=== PATIENT | female | born 1965 | race Hispanic/Latino ===

== ENCOUNTER 2017-01-08 16:24 | Inpatient (IN) | payer OTHER ==
[~2017-01-08] VITALS: Ht 167.6 cm; Wt 184.4 kg
[~2017-01-08 16:24] MED LIST: ASPI325T32 PO; BENZ-12 PO; CLIN-78 PO; CYCL10TA9 PO; D ME PO; FLUO60TA PO; HYDR-4003 PO; HYDR473S48 PO; IBUP800T28 PO; LORA-305 PO; LOSA100T29 PO; METF500T4 PO
[2017-01-08 16:32] VITALS: BP 150/99; PULSE 108; RESP 22; O2SAT 97
[2017-01-08] MEDS ORDERED: Ondansetron 2 mg/mL 2 mL Inj ONE (18:04)
[2017-01-08 18:16] LABS: BASOPHILS % (AUTO) 0.2 % (0-3); MONOCYTES % (AUTO) 5.5 % (4-12); Mean Corpuscular Hemoglobin 26.4 pg (27.0-35.0); Mean Corpuscular Volume 84.8 fL (81-100); NEUTROPHILS % (AUTO) 85.7 % (40-74); Platelet Count 309 bil/L (150-400)
--- NOTE | 2017-01-08 18:22 | ED.REPORT ---
HPI-Abd Pain F 40 and Over Date of Service Jan 08, 2017 ED Provider: Emigdio Mason MD A 51 year old female with a history of asthma presents to the ED complaining of abdominal pain onset last night. Pain is concentrated in the middle abdomen and radiates to her right side. At 0600, the patient was woken up by pain and had diarrhea, with subsequent difficulty getting back to sleep. Diarrhea is described as "pure water." Associated symptoms include nausea, weakness, lightheadedness, dizziness and that"food goes right through her" due to diarrhea. The patient's mother was recently hospitalized for TIA and experienced severe diarrhea while in the hospital which has since resolved after her discharge. The patient visited her mother earlier today where the patient felt like she was going to faint from the pain and weakness. The patient took two of her mom's loperamide today to treat the diarrhea. She also had chamomile tea and mineral water. The patient denies taking any antibiotics in the last 3 months and has not recently traveled out of the country. She reports a history of and abdominal surgery to treat gall stones in 1981, however she does not think that she had a cholecystectomy. She denies any fever and describes that she is usually cold. Nursing Notes Stated Complaint: ABDOMINAL PAIN, NAUSEA,DIARRHEA, DIZZINESS Chief Complaint: Female Abdominal Pain Nursing Notes Reviewed: Yes ([employer] not reconciled) Allergies: Coded Allergies: Penicillins (Verified Allergy, Severe, HOT, SEVERE RASH,ANXIETY, 07/29/16) cephalexin (Verified Allergy, Intermediate, rash, 07/29/16) Scheduled Aspirin (Aspirin) 325 Mg Tablet 325 MG PO DAILY Clindamycin (Clindamycin) 300 Mg Capsule 300 MG PO QID Cyclobenzaprine (Cyclobenzaprine) 10 Mg Tablet 10 MG PO TID Fluoxetine (Fluoxetine) 60 Mg Tablet 60 MG PO DAILY Losartan Potassium (Losartan Potassium) 100 Mg Tablet 100 MG PO DAILY Metformin (Metformin) 500 Mg Tablet 500 MG PO BID Scheduled PRN Benzonatate (Tessalon Perle) 100 Mg Capsule 100 MG PO TID PRN PRN For Cough D-Methorphan/PE/Acetaminophen (Sudafed PE Pressure+Pain+Cough) 1 Each Tablet 1 EACH PO DAILY PRN PRN For Congestion Hydrocodone-Acetaminophen 5-325 mg (Hydrocodone-Acetaminophen 5-325 mg) 1 Each Tablet 1-2 TABLET PO QID PRN PRN For Pain Hydrocodone/Acetaminophen (Lortab 10 mg-300 mg/15 ml Elxr) 473 Ml Solution 5-15 ML PO Q4 PRN PRN For Pain Ibuprofen (Ibuprofen) 800 Mg Tablet 800 MG PO TID PRN PRN For Pain Lorazepam (Ativan) 2 Mg Tablet 2 MG PO prn PRN PRN For Insomnia General Time Seen by MD: 18:20 Chief Complaint Abdominal pain Hx Obtained From: Patient Arrived By: Walk-in Sudden in Onset?: No Onset Occurred: Yesterday (Last night) Symptom Duration: Since onset Recent Healthcare: No recent doctor visit Similar Sx Previous: No Past Medical History Past Medical History LLE cellulitis requiring admission Nov 13, 2015 bronchitis asthma Reports: Asthma Reports: Morbid Obesity Past Surgical History Right elbow ortho BCTR Patient has a midline scar - ?Xlap for unclear cause - not sure if gallbladder may have been removed ("I had stones") Smoking History Former Smoker Social History Other Social History: Good social support, Local resident Ambulatory Status Independent Review of Systems Lightheadedness. Constitutional: Denies: Fever GI: Reports: Abdominal pain, Diarrhea, Nausea Complete sys rev & neg: except as marked. Neurologic: Reports: Dizziness, Weakness Physical Exam Vital Signs Vital Signs (First) Date Time Temp Pulse Resp B/P Pulse Ox O2 Delivery O2 Flow Rate FiO2 01/08/17 16:32 37.2 108 22 150/99 97 Room Air Initial VS: Reviewed, Vital signs abnormal (mild tachycardia) General/Constitutional: Awake, Alert Appearance / Presentation: Positive: Obese uncomftorable. Respiratory / Chest: Atraumatic, Breath sounds NL, Breath sounds = bilat, No rales, No rhonchi, No wheezing Cardiovascular: No murmurs, No rubs Heart Rate / Rhythm: Positive: Tachycardia (Mild) Abdomen: Atraumatic, Soft, Non-tender, No guarding, No rebound Patient has midline incisional scar from unknown procudure. Back: Atraumatic, Full range of motion Head / Eyes: Atraumatic, Normocephalic, PERRL, EOMI ENT: Atraumatic, Mucous membranes moist Skin: Atraumatic, Color NL, Warm, Dry Neurologic: Oriented X3, Speech NL Neck: Atraumatic, Full range of motion Wrist / Hand: Atraumatic, Full range of motion Lower Extremity / Pelvis / MS: Atraumatic, Full range of motion Interpretation & Diagnostics Lab Results Interpretation Result Diagram: 01/08/17 1800 01/08/17 1800 Test 01/08/17 18:00 White Blood Count 14.5th/mm3 (3.8-10.1) Red Blood Count 4.81mil/mm3 (3.90-5.20) Hemoglobin 12.7g/dL (12.0-15.6) Hematocrit 40.8% (35.0-46.0) Mean Corpuscular Volume 84.8fL (81-100) Mean Corpuscular Hemoglobin 26.4pg (27.0-35.0) Mean Corpuscular Hemoglobin Concent 31.1% (32.0-37.0) Red Cell Distribution Width 14.9% (12.3-15.4) Platelet Count 309bil/L (150-400) Neutrophils (%) (Auto) 85.7% (40-74) Lymphocytes (%) (Auto) 5.3% (14-46) Monocytes (%) (Auto) 5.5% (4-12) Eosinophils (%) (Auto) 3.0% (0-5) Basophils (%) (Auto) 0.2% (0-3) Sodium Level 134mEq/L (134-144) Potassium Level 4.3mEq/L (3.5-5.2) Chloride Level 94mEq/L (97-108) Carbon Dioxide Level 23mmol/L (18-29) Blood Urea Nitrogen 13mg/dL (6-24) Creatinine 0.67mg/dL (0.57-1.00) Estimat Glomerular Filtration Rate 132mL/min (>59) Glucose Level 158mg/dL (60-99) Calcium Level 9.2mg/dL (8.5-10.1) Magnesium Level 1.6mg/dL (1.6-2.6) Total Bilirubin 0.3mg/dL (0.0-1.2) Aspartate Amino Transf (AST/SGOT) 22U/L (0-50) Alanine Aminotransferase (ALT/SGPT) 21U/L (0-32) Alkaline Phosphatase 81U/L (25-150) Total Protein 8.4g/dL (6.4-8.4) Albumin 4.2g/dL (3.4-5.0) Lipase 19U/L (13-60) Lab Results Interpretation: CBC mild leukocytosis CMP normal Lipase normal Stools PCR panel pending Re-Eval/Medical Decision Med Decision/Clinical Course This is a 51-year-old female presents with some mild complaints of abdominal discomfort, followed by the onset of terrible, persistent, severe, and ongoing diarrhea. She reports she has had countless bouts episodes of loose watery stools, and it continued in the department more than 12-14 episodes occurring. The patient feels weak, and dizzy. She appears clinically mildly dehydrated- appearing but has normal vitals. She has no overt C. difficile risk factors-no travel history, no recent definite ill exposure, no recent antibiotic use. She received fluids, continued to have episodes of stools-stool PCR is panel has been sent given the severity of her ongoing, uncontrolled diarrhea. Blood work is notable for leukocytosis but otherwise normal. She is obese. Abdomen is soft, without clinical tenderness or findings of a surgical abdomen, or findings to indicate that CT scan would be warranted. However despite hydration attempts, the patient continues to have ongoing severe diarrhea, continues to feel weak and lousy, lives at home. Therefore the plan at this time is observation admission for continued supportive therapies. Source of Hx: Old records Re-Evaluation/Progress : Time of Eval: 21:15 Re-Evaluation/Progress Note: Rechecked patient who reports having 12 episoides of uncontrolled diarrhea since last recheck. Explained plan for admission. Patient understands and agrees with the plan. All questions addressed. Consultation : Referral / Consult Name: Keya Jean DO Consulted With: Hospitalist Call Returned at: 21:29 Film Composer: Agrees with eval, Agrees with plan, Accepts admit Note: Discussed patient case with Dr. Jean who accepts patient admit. Differential Diagnosis: Positive: Diarrhea, Negative: Abdominal aortic aneurysm, Acute coronary syndrome, Constipation, Ectopic , Esophageal rupture, Gun shot wound abdomen, Intrauterine , Peritonitis, Stab wound abdomen, Unstable angina Counseled Regarding: Diagnosis, Lab results, Need for admission Discharge & Departure Primary Impression: Diarrhea Additional Impression: Dehydration Disposition: ADMITTED TO HOSPITAL Discharge Condition All VS Reviewed: Yes Condition: Improved Referrals: Luz Hayes MD (PCP) Scribe Attestation Portions of this note were transcribed by Tan Tidwell. I, Dr. Mason, personally performed the history, physical exam and medical decision-making; I reviewed and confirmed the accuracy of the information in the transcribed note. Signed by Tan Guerra, 01/08/17. copies to: Luz Hayes MD, Matthew F MD Jan 08, 2017 18:22 Tan Tidwell Jan 08, 2017 18:27
[2017-01-08 18:41] LABS: Magnesium 1.6 mg/dL (1.6-2.6)
[2017-01-08] MEDS ORDERED: Ondansetron 2 mg/mL 2 mL Inj IVPUSH ONE (18:45)
[2017-01-08] MEDS ORDERED: 0.9% Sodium Chloride 1,000 ML IV ONE ×3 (18:45→21:15)
[2017-01-08 20:52] VITALS: BP 124/75; PULSE 97; RESP 16; O2SAT 97
[2017-01-08] MEDS ORDERED: Polyethylene Glycol (PEG) 17 Gm Powder PO PRN (21:30)
[2017-01-08] MEDS ORDERED: Alum-Mag Hydrox-Simeth 30 mL Suspension PO PRN (21:30)
[2017-01-08] MEDS ORDERED: HYDROcodone-APAP 5-325 mg Tablet PO ONE (21:50)
[2017-01-08] MEDS ORDERED: OMEP20TA86 PO (22:32)
[2017-01-08] MEDS ORDERED: BECL8.7A5 INHALATION (22:32)
[2017-01-08] MEDS ORDERED: FLUT9.9S NASAL (22:32)
[2017-01-08] MEDS ORDERED: BUSP15TA3 PO (22:32)
[2017-01-08] MEDS ORDERED: METF850T2 PO (22:32)
[2017-01-08] MEDS ORDERED: ALBU8.5H2 INHALATION (22:32)
[2017-01-08 23:04] VITALS: BP 124/75; PULSE 97; RESP 16; O2SAT 97
[2017-01-08] MEDS ORDERED: LORazepam 2 mg Tablet PO PRN (23:10)
[2017-01-08] MEDS ORDERED: Albuterol 2.5 mg/3 mL Inhalation Solution NEB PRN (23:10)
[2017-01-08] MEDS ORDERED: Glucose 40% Oral Gel 15 Gm Tube PO PRN (23:15)
--- NOTE | 2017-01-08 23:22 | PCM.HPMED ---
Subjective Date of Service Jan 08, 2017 Primary Provider: Admitting Physician: Keya Jean DO Primary Care Physician: Luz Hayes MD Attending Physician: Keya Jean DO Chief Complaint: Diarrhea, generalized weakness History of Present Illness: Patient is a 51 year old female with a history of DM type 2, HTN, and depression. She presented to [facility] on 01/08/17 with persistent diarrhea and generalized weakness. The diarrhea began earlier in the day. She reports numerous episodes, probably greater than 20. She describes the stool as feeling like liquid/water and it is yellow/orange in color. She denies any bloody stools and has not seen any solid brown stool. She has been quite nauseated with no vomiting and she does have abdominal pain in the area of the umbilicus. Bloating and belching have also been noted. She has a poor appetite as a consequence of her symptoms. She denies fever but has been chilled with mild rigors. No difficulties with urination such as dysuria and no hematuria noted. The patient decided to come to the hospital when she felt as though she was about to pass out. Her generalized weakness had progressed to the point that she thought she was becoming dehydrated. Her diarrhea was also becoming more difficult to control and she was not making it to the bathroom in time to use the toilet. Her last meal was breakfast on 01/08/17. She had toast and half a banana. Yesterday she recalls eating fish sticks and corn for dinner. Other family members also ate this meal and did not become ill. The patient denies any recent travel or camping. She has not knowingly consumed water from a well, stream or downs. She has not been on antibiotics in the last month or so. The only new thing to her daily routine is the use of an [employer] powder called "Greens." The powder is dissolved in water and can be used as a nutritional supplement for vegetables. The patient is in phase two of the process of gastric bypass surgery. In the ED the patient was afebrile with a heart rate of 108, respiratory rate 22 , blood pressure 150/99 and O2 saturation 97% on room air. Labs were remarkable for WBC 14.5, and blood glucose 158. Stool PCR was ordered by Dr. Mason. IV fluids initiated. Case discussed with Dr. Mason. Patient to be admitted inpatient to [facility] [place] [place] for further IV hydration. Review of Systems: A comprehensive review of systems was conducted with the patient and found to be negative except as above in the history of present illness. Allergies Coded Allergies: Penicillins (Verified Allergy, Severe, HOT, SEVERE RASH,ANXIETY, 07/29/16) cephalexin (Verified Allergy, Intermediate, rash, 07/29/16) Home Medications Per patient: Ativan 2 mg HS PRN insomnia Albuterol HFA 2 puffs Q4 PRN SOB Aspirin 325 mg daily QVAR 2 puffs BID PRN SOB Buspirone 15 mg BID Cyclobenzaprine 10 mg TID PRN muscle spasm Fluoxetine 60 mg daily Flonase 1 spray each nostril PRN Hydrocodone-acetaminophen 5/325 mg 1-2 tables QID PRN pain Ibuprofen 800 mg TID pain Losartan 100 mg daily Metformin 850 mg BID Omeprazole 20 mg daily PMH Diabetes mellitus type 2 Hypertension Depression Morbid obesity in phase 2 of gastric bypass Surgical History Right elbow ortho BCTR Family History Family history of DM and HTN Social History Hx Alcohol Use: No Hx Substance Use: No Hx Tobacco Use: No Exam Vital Signs Vital Sign - Last Date Time Temp Pulse Resp B/P Pulse Ox O2 Delivery O2 Flow Rate FiO2 01/08/17 20:52 37.7 97 16 124/75 97 Room Air Exam Alert and oriented x3, in obvious discomfort; morbidly obese Head atraumatic, normocephalic PERRLA, EOMI, sclera anicteric Mucus membranes dry, no oral thrush observed No cervical lymphadenopathy, neck supple, nontender Cardiac tones regular rate and rhythm with no murmur appreciated Lungs clear to auscultation bilaterally with adequate respiratory effort ( anteriorly) Abdominal tenderness around the umbilicus, obese, hyperactive bowel tones, soft , no guarding or rebound tenderness Noguera absent Radial pulses normal and equivalent bilaterally, dorsalis pedis pulses normal and equivalent bilaterally No cyanosis, clubbing or edema No ulcerations/open wounds Cranial nerves appear to be fully intact, normal speech, patient can move upper and lower limbs grossly Lab and Diagnostics Result Diagram: 01/08/17 1800 01/08/17 1800 Assessment & Plan Patient is a 51 year old female with a history of DM type 2, HTN, and depression. She presented to [facility] on 01/08/17 with persistent diarrhea and generalized weakness. IV fluids initiated in ED. Patient admitted for supportive symptom management. 1. Acute diarrhea, present on admission. - Based on patient history presume viral etiology of gastroenteritis. Have not definitely ruled out bacterial causes but seem less likely. No recent ABX use to raise suspicion for C. diff. - Will not plan to start antibiotics at this time. If WBC increases tomorrow AM , patient decompensates overnight, or PCR positive consider starting antibiotics. - Stool PCR ordered and pending. - Await stool PCR before using loperamide or similar medication. - Continue IV NS 100 ml/hr. - Clear liquid diet as tolerated. Will plan to advance diet as tolerated. - Closely monitor I&O's. - Contact precautions. - Recheck CBC and CMP tomorrow AM. - Remote telemetry at this time. - Low threshold to do CT scan of abdomen if abdominal pain worsens. 2. Diabetes mellitus type 2, non-insulin dependent. - Unknown A1c - ordered and pending. - Patient takes metformin 850 mg BID at home. Will hold tonight - defer to day team to re-start. - Low dose correction scale ordered and pending. 3. Hypertension, chronic, presume stable. - Continue home meds - losartan 100 mg daily. 4. Depression, chronic, presume stable. - Continue home meds: buspirone 15 mg BID and fluoxetine 60 mg daily. 5. Asthma, chronic, presume stable. - Continue albuterol nebs PRN. 6. Morbid obesity. - BMI 67.8 - Patient undergoing outpatient treatment and is in phase 2 of the process for gastric bypass. - Antiemetic available PRN. - Antacid available PRN. - [place] 5/325 mg available Q6 PRN. Patient admitted under inpatient status with expected length of stay greater than 2 midnights for severity of present symptoms, complexities of treatment plan and risk for adverse events. PCP Luz Hayes MD GI Prophylaxis: Proton Pump Inhibitor VTE Prophylaxis: Sub-Q Enoxaparin Resuscitation Status: CPR: Attempt Resuscitation Attending Statement The patient was seen and examined together with house staff on 01/09/2017 and I agree with the history, exam and plan as outlined in the note above. copies to: Luz Hayes MD, Jennifer E DO Jan 08, 2017 22:46 Keya Jean DO Jan 09, 2017 04:18
[2017-01-08] MEDS: 0.9% Sodium Chloride 1,000 ML IV SCH (23:49)
--- NOTE | 2017-01-08 23:50 | NUR ---
admit Pt arrived to room from ED with all belongings and daughter. Pt walked from stretcher to bed, pt needing assist to bed and to get feet into bed. Pt was alert and oriented, complained of abdominal pain and waiting for previously given pain med to work. Walked with assist to bathroom and returned to bed. Left room with call light in pt hand.
[2017-01-08 23:56] VITALS: BP 143/83; PULSE 90; RESP 18; O2SAT 93
[2017-01-09] VITALS (7 sets, daily range): BP systolic 100–146; BP diastolic 68–92; PULSE 79–94; RESP 18; O2SAT 93–97
[2017-01-09] MEDS: HYDROcodone-APAP 5-325 mg Tablet PO PRN ×3 (04:35→20:10)
--- NOTE | 2017-01-09 04:47 | NUR ---
pain Pt given percoset for abdominal pain. Continues on enteric precautions till labs return in the AM. Left room with call light at bedside.
[2017-01-09] MEDS: Pantoprazole 40 mg ER24 Tablet PO SCH (06:02)
[2017-01-09 06:11] LABS: BASOPHILS % (AUTO) 0.2 % (0-3); MONOCYTES % (AUTO) 10.7 % (4-12); Mean Corpuscular Hemoglobin 26.3 pg (27.0-35.0); NEUTROPHILS % (AUTO) 71.8 % (40-74); Platelet Count 247 bil/L (150-400)
[2017-01-09 06:37] LABS: Magnesium 1.8 mg/dL (1.6-2.6); Phosphorus 2.5 mg/dL (2.5-4.9)
[2017-01-09] MEDS: Insulin LISPRO 300 Unit/3 mL Inj SUBQ SCH ×4 (08:00→20:03)
[2017-01-09] MEDS: BusPIRone 15 mg Dividose Tablet PO SCH ×2 (08:28→19:51)
[2017-01-09] MEDS: 0.9% Sodium Chloride 1,000 ML IV SCH ×2 (09:36→19:55)
[2017-01-09] MEDS: Ondansetron 2 mg/mL 2 mL Inj IVPUSH PRN (14:35)
--- NOTE | 2017-01-09 16:34 | NUR ---
Social Work: Screening Data: Pt is a 51 y/o female admitted for diarrhea, dehydration. Pt's PCP is Dr Hayes, pt's insurance is [employer]. EMR reviewed, pt discussed in rounds. No d/c planning needs identified at this time. [employer] will continue to follow if needs arise. Assessment: Pt who is independent at baseline. Plan: Pt will d/c home via POV when medically stable. No d/c planning needs identified at this time. [employer] will continue to follow if needs arise. DEBORA Pillai
--- NOTE | 2017-01-09 16:34 | NUR ---
Diarrhea/Pain Pt continues to report watery, frequent stools. Pt continued on IVF at 100mL/Hr and able to tolerate some clear liquids. Pt did report some nausea this afternoon and Pt given PRN IV zofran. Pt reporting 8/10 abd pain this am, only PRN available at the time was cyclobenzaprine which Pt received without effect on pain. Pt given PRN norco when timing in eMAR allowed, Pt reported as somewhat effective for pain, spoke with MD and ketorolac IV PRN added to eMAR, attempted ketorolac IV PRN which brought Pt's pain into goal.
--- NOTE | 2017-01-09 16:42 | PCM.PNMED ---
Subjective Date of Service Jan 09, 2017 Subjective Nancy Kaplan is a 51-year-old year-old with a past medical history significant for diabetes mellitus type II, hypertension, and depression who presented to [facility] emergency Department with persistent diarrhea and generalized weakness 1 day and admitted for supportive symptom management. Overnight: There were no acute events. Telemetry overnight was sinus rhythm, heart rate 80 to 100's, without ectopy. The patient is resting in bed comfortably and in no acute distress. She denies headache, cough, shortness of breath, chest pain, vomiting, fever, chills, or dysuria. She continues to have copious diarrhea with several episodes of incontinence. She endorses mid abdominal pain that is crampy in quality. She is voiding without difficulty. She is not up ambulating. . Exam Vital Signs Vital Sign - Last Date Time Temp Pulse Resp B/P Pulse Ox O2 Delivery O2 Flow Rate FiO2 01/09/17 13:42 36.7 79 18 100/68 97 Room Air Intake and Output 01/08/17 01/08/17 01/09/17 Cumulative From/Thru 15:00 23:00 07:00 01/08/17 16:32 - 01/09/17 06:16 Intake Total 3634 ml 3634 ml Balance 3634 ml 3634 ml Intake IV Total 3634 ml 3634 ml Exam General: Obese female lying in bed and in mild distress, well-developed, well- nourished, appropriately interactive. HEENT: Normocephalic, atraumatic. External ears without defect. Pupils equal, round, and reactive to light. Anicteric sclerae, moist conjunctivae, and no lid lag. Oropharynx free of erythema and cobble stoning with moist mucosa. Neck: Supple with full range of motion. No jugular venous distension. No bruits. No lymphadenopathy or thyromegaly. Cardiovascular: Regular rate and rhythm with no murmurs, rubs, or gallops appreciated. Pulmonary: Clear to auscultation bilaterally with no crackles, wheezes, or rhonchi. Normal respiratory effort with no use of accessory muscles. Abdomen: Soft, obese, mild tenderness to palpation in mid abdomen, nondistended , bowel sounds present. No hepatosplenomegaly or masses appreciated. Extremities: No clubbing, cyanosis, or edema. Skin: Normal temperature, turgor, and texture; no rash, ulcers, or subcutaneous nodules appreciated. Neurological: Cranial nerves grossly intact. Normal muscle strength, tone, and bulk. Reflexes, coordination, and sensory function within normal limits. No known gait impairment. Psychiatric: Normal mood and affect. Alert and oriented to person, place, and time. . IVs and Medications Medications Reviewed: Medications were reviewed in detail Lab and Diagnostics Item Value Date Time Lactic Acid Level 0.7 mmol/L 01/09/17 0710 Calcium Level 8.0 mg/dL L 01/09/17 0550 Phosphorus Level 2.5 mg/dL 01/09/17 0550 Magnesium Level 1.8 mg/dL 01/09/17 0550 Total Bilirubin 0.3 mg/dL 01/09/17 0550 Aspartate Amino Transf (AST/SGOT) 21 U/L 01/09/17 0550 Alanine Aminotransferase (ALT/SGPT) 20 U/L 01/09/17 0550 Alkaline Phosphatase 62 U/L 01/09/17 0550 Total Protein 6.9 g/dL 01/09/17 0550 Albumin 3.4 g/dL 01/09/17 0550 Result Diagram: 01/09/17 0550 01/09/17 0550 Microbiology Stool PCR positive for rotavirus A. . Assessment & Plan Nancy Kaplan is a 51-year-old year-old with a past medical history significant for diabetes mellitus type II, hypertension, and depression who presented to [facility] emergency Department with persistent diarrhea and generalized weakness 1 day and admitted for supportive symptom management. Hospital day #2. 1. Acute viral gastroenteritis, present on admission. Active. - Stool PCR positive for rotavirus A. - Ordered BRAT diet and may advance as tolerated. - Closely monitor I&O's. - Continue contact precautions. - Continue symptomatic management including: IV fluid hydration NS 100 ml/hr, acetaminophen 975 mg every 6 hours, [place] 5/325 mg every 6 hours and Toradol 30 mg IV every 6 hours as needed for abdominal pain. Chronic problems: 2. Diabetes mellitus type 2, non-insulin dependent. - Unknown A1c - ordered and pending. - Patient takes metformin 850 mg BID at home. - Continue low-dose correctional scale insulin. - Held metformin and may restart prior to discharge. 3. Hypertension, chronic, presume stable. - Continue home meds - losartan 100 mg daily. 4. Depression, chronic, presume stable. - Continue home meds: buspirone 15 mg BID and fluoxetine 60 mg daily. 5. Asthma, chronic, presume stable. - Continue albuterol nebs PRN. 6. Morbid obesity. - BMI 67.8 - Patient undergoing outpatient treatment and is in phase 2 of the process for gastric bypass. PRN antiemetics: Zofran and Maalox. PRN bowel regimen: Senna and MiraLAX. PRN analgesics: Tylenol, Toradol 30 mg IV and [place] 5/325 mg every 6 hours as needed for pain. Patient admitted under inpatient status with expected length of stay greater than 2 midnights for severity of present symptoms, complexities of treatment plan and risk for adverse events. . GI Prophylaxis: Proton Pump Inhibitor VTE Prophylaxis: Sub-Q Enoxaparin Resuscitation Status: CPR: Attempt Resuscitation Attending Statement The patient was seen and examined together with Dr. Shelby on 01/09/17 and I agree with the history, exam and plan as outlined in the note above. Diane Shelby DO Jan 09, 2017 16:42 Jerri Mcdaniel DO Jan 10, 2017 13:26
[2017-01-10] VITALS (7 sets, daily range): BP systolic 123–144; BP diastolic 73–93; PULSE 78–87; RESP 18–20; O2SAT 93–96
[2017-01-10] MEDS: HYDROcodone-APAP 5-325 mg Tablet PO PRN ×3 (02:13→22:21)
[2017-01-10] MEDS: 0.9% Sodium Chloride 1,000 ML IV SCH ×2 (05:55→15:06)
--- NOTE | 2017-01-10 06:05 | NUR ---
Diarrhea: Pt continues to have diarrhea throughout the night, c/o some dizziness/weakness. Requesting pain medication for abdominal pain. Slept most of the night, pleasant and cooperative with care.
[2017-01-10 07:23] LABS: BASOPHILS % (AUTO) 0.3 % (0-3); EOSINOPHILS % (AUTO) 5.2 % (0-5); MONOCYTES % (AUTO) 10.3 % (4-12); Mean Corpuscular Hemoglobin 26.8 pg (27.0-35.0); Mean Corpuscular Volume 85.9 fL (81-100); NEUTROPHILS % (AUTO) 61.2 % (40-74); Platelet Count 236 bil/L (150-400)
[2017-01-10] MEDS: Insulin LISPRO 300 Unit/3 mL Inj SUBQ SCH ×4 (08:00→22:00)
[2017-01-10] MEDS: Pantoprazole 40 mg ER24 Tablet PO SCH (08:01)
[2017-01-10] MEDS: BusPIRone 15 mg Dividose Tablet PO SCH ×2 (08:01→22:20)
--- NOTE | 2017-01-10 14:29 | PCM.PNMED ---
Subjective Date of Service Jan 10, 2017 Subjective Nancy Kaplan is a 51-year-old year-old with a past medical history significant for diabetes mellitus type II, hypertension, and depression who presented to [facility] emergency Department with persistent diarrhea and generalized weakness 1 day and admitted for supportive symptom management. This morning, Ms. Kaplan reports that she continues to have frequent loose, watery bowel movements with associated midline abdominal cramping. She states that her bowel movements have decreased in frequency. She is still incontinent of stool because she is not able to make it to the bedside commode fast enough. Exam Vital Signs Vital Sign - Last Date Time Temp Pulse Resp B/P Pulse Ox O2 Delivery O2 Flow Rate FiO2 01/10/17 10:10 85 01/10/17 09:21 36.7 20 131/77 96 Room Air Intake and Output 01/09/17 01/09/17 01/10/17 Cumulative From/Thru 15:00 23:00 07:00 01/08/17 16:32 - 01/10/17 05:54 Intake Total 1959 ml 1093 ml 6686 ml Output Total 3 ml 3 ml Balance 1956 ml 1093 ml 6683 ml Intake Oral 800 ml 800 ml IV Total 1159 ml 1093 ml 5886 ml Emesis 3 ml 3 ml # Voids 3 3 Exam General: Obese female lying in bed and in mild distress, well-developed, well- nourished, appropriately interactive. HEENT: Normocephalic, atraumatic. External ears without defect. Pupils equal, round, and reactive to light. Anicteric sclerae, moist conjunctivae, and no lid lag. Oropharynx free of erythema and cobble stoning with moist mucosa. Neck: Supple with full range of motion. No jugular venous distension. No bruits. No lymphadenopathy or thyromegaly. Cardiovascular: Regular rate and rhythm with no murmurs, rubs, or gallops appreciated. Pulmonary: Clear to auscultation bilaterally with no crackles, wheezes, or rhonchi. Normal respiratory effort with no use of accessory muscles. Abdomen: Soft, obese, mild tenderness to palpation in mid abdomen, nondistended , hyperactive bowel sounds present. No hepatosplenomegaly or masses appreciated. Extremities: No clubbing, cyanosis, or edema. Skin: Normal temperature, turgor, and texture; no rash, ulcers, or subcutaneous nodules appreciated. Neurological: Cranial nerves grossly intact. Normal muscle strength, tone, and bulk. Reflexes, coordination, and sensory function within normal limits. No known gait impairment. Psychiatric: Normal mood and affect. Alert and oriented to person, place, and time. IVs and Medications Medications Reviewed: Medications were reviewed in detail Lab and Diagnostics Result Diagram: 01/10/17 0710 01/10/17 0710 Microbiology Stool PCR positive for rotavirus A. . Assessment & Plan Nancy Kaplan is a 51-year-old year-old with a past medical history significant for diabetes mellitus type II, hypertension, and depression who presented to [facility] emergency Department with persistent diarrhea and generalized weakness 1 day and admitted for supportive symptom management. Hospital day #2. 1. Acute viral gastroenteritis, present on admission. Active. - Stool PCR positive for rotavirus A. - Ordered BRAT diet and may advance as tolerated. - Closely monitor I&O's. - Continue contact precautions. - Continue symptomatic management including: IV fluid hydration NS 100 ml/hr, acetaminophen 975 mg every 6 hours, [place] 5/325 mg every 6 hours and Toradol 30 mg IV every 6 hours as needed for abdominal pain. - Consider adding loperamide tomorrow if frequency and urgency of bowel movements has not improved. She does not have signs of a bacterial gastroenteritis, which makes her an appropriate candidate for loperamide use. Chronic problems: 2. Diabetes mellitus type 2, non-insulin dependent. - Unknown A1c - ordered and pending. - Patient takes metformin 850 mg BID at home. - Continue low-dose correctional scale insulin. - Held metformin and may restart prior to discharge. 3. Hypertension, chronic, presume stable. - Continue home meds - losartan 100 mg daily. 4. Depression, chronic, presume stable. - Continue home meds: buspirone 15 mg BID and fluoxetine 60 mg daily. 5. Asthma, chronic, presume stable. - Continue albuterol nebs PRN. 6. Morbid obesity. - BMI 67.8 - Patient undergoing outpatient treatment and is in phase 2 of the process for gastric bypass. PRN antiemetics: Zofran and Maalox. PRN bowel regimen: Senna and MiraLAX. PRN analgesics: Tylenol, Toradol 30 mg IV and [place] 5/325 mg every 6 hours as needed for pain. Patient admitted under inpatient status with expected length of stay greater than 2 midnights for severity of present symptoms, complexities of treatment plan and risk for adverse events. . GI Prophylaxis: Proton Pump Inhibitor VTE Prophylaxis: Sub-Q Enoxaparin Resuscitation Status: CPR: Attempt Resuscitation Time spent 30 minutes Attending Statement I have seen and evaluated patient at bedside in addition to directly supervising care provided by resident physician. I agree with above documentation. Anat Hernandes DO Jan 10, 2017 14:29 Blair Castillo DO Jan 11, 2017 08:42
[2017-01-10] MEDS: Ondansetron 2 mg/mL 2 mL Inj IVPUSH PRN (15:43)
[2017-01-11] MEDS: 0.9% Sodium Chloride 1,000 ML IV SCH ×3 (00:14→23:26)
--- NOTE | 2017-01-11 03:34 | NUR ---
IV out: IV came out while pt sleeping, unable to restart. Voice message left for IV therapy to restart in the am.
[2017-01-11 03:49] VITALS: BP 114/66; PULSE 83; RESP 18; O2SAT 95
--- NOTE | 2017-01-11 04:55 | NUR ---
Diarrhea: Pt continues to have diarrhea. Pt c/o some abdominal discomfort, denies SOB. Pt requested bedpan during the night due to weakness. Slept off/on throughout the night, pleasant and cooperative with care.
[2017-01-11 07:49] LABS: BASOPHILS % (AUTO) 0.3 % (0-3); EOSINOPHILS % (AUTO) 7.6 % (0-5); MONOCYTES % (AUTO) 9.2 % (4-12); Mean Corpuscular Hemoglobin 26.2 pg (27.0-35.0); Mean Corpuscular Volume 86.2 fL (81-100); NEUTROPHILS % (AUTO) 56.7 % (40-74); Platelet Count 265 bil/L (150-400)
[2017-01-11] MEDS: Insulin LISPRO 300 Unit/3 mL Inj SUBQ SCH ×4 (07:58→21:04)
[2017-01-11] MEDS: BusPIRone 15 mg Dividose Tablet PO SCH ×2 (08:37→21:04)
[2017-01-11] MEDS: Pantoprazole 40 mg ER24 Tablet PO SCH (08:37)
--- NOTE | 2017-01-11 09:23 | NUR ---
Social Work-continued d/c planning: Data:EMR Reviewed. Pt is on day 3 of hospitalization for diarrhea per H&P. Pt is not medically stable for discharge anticipate several more days. SW followed up with pt at bedside, SW role explained. Pt is alert and oriented x3. Pt resides at home alone, but her daughter has been staying with her and assisting her. Pt uses an electric scooter at baseline. Pt has no HH or SNF history. SW discussed DPOA/ advanced directive, pt states she has never completed this and is not interested in any information. Pt does not anticipate any discharge needs. Pt's daughter to provide transport home. SW provided phone number and plan on white board in room. No anticipated discharge needs. SW will continue to follow if needs arise. Assessment:pt who has assistance from daughter at home. Plan:Pt to likely discharge home when medically stable via POV. No anticipated discharge needs. SW will continue to follow if needs arise. DEBORA Byrd
[2017-01-11 15:12] VITALS: BP 129/73; PULSE 74; RESP 18; O2SAT 93
--- NOTE | 2017-01-11 15:15 | NUR ---
NUTRITION ASSESSMENT: ASSESS: 51 YO female admitted for acute viral gastroenteritis with diarrhea and dehydration. Per notes, diarrhea is improving. PMHx: DM type 2, HTN, depression, morbid obesity, asthma. LABS: Reviewed. A1C 7.4. MEDS: Reviewed. GI: BM x 2. CURRENT WT: 184.4 kg. Adj BW: 90.4 kg. DIET: General. PO 50-100%. EST. NEEDS: 1130-9483 kcals (25-30 kcals/kg Adj BW), 110-135 g protein (1.2-1.5 g/kg Adj BW) NUTRITION DIAGNOSIS: 1.) No nutritional diagnosis at this time. NUTRITION INTERVENTION: 1.) No nutritional intervention at this time. MONITOR / EVAL: PO intake, labs, GI and nutritional status. Will continue to follow per moderate nutritional risk guidelines.
[2017-01-11] MEDS: HYDROcodone-APAP 5-325 mg Tablet PO PRN (15:44)
--- NOTE | 2017-01-11 16:00 | PCM.PNMED ---
Subjective Date of Service Jan 11, 2017 Subjective Nancy Kaplan is a 51-year-old year-old with a past medical history significant for diabetes mellitus type II, hypertension, and depression who presented to [facility] emergency Department with persistent diarrhea and generalized weakness 1 day and admitted for supportive symptom management. This morning, Ms. Kaplan states that her bowel movements increased in frequency again overnight. She feels dehydrated. Her abdomen continues to have cramps. Whenever she eats, she immediately has a bowel movement afterwards. Exam Vital Signs Vital Sign - Last Date Time Temp Pulse Resp B/P Pulse Ox O2 Delivery O2 Flow Rate FiO2 01/11/17 15:12 36.6 74 18 129/73 93 Room Air Intake and Output 01/10/17 01/10/17 01/11/17 Cumulative From/Thru 15:00 23:00 07:00 01/08/17 16:32 - 01/11/17 04:54 Intake Total 700 ml 2796 ml 872 ml 48041 ml Output Total 1750 ml 2250 ml 4003 ml Balance -1050 ml 546 ml 872 ml 7051 ml Intake Oral 700 ml 1550 ml 3050 ml IV Total 1246 ml 872 ml 8004 ml Output Urine Total 375 ml 375 ml Stool Total 1875 ml 1875 ml Urine/Stool Mix 1750 ml 1750 ml Emesis 3 ml # Voids 3 6 # Bowel Movements 3 6 9 Exam General: Obese female lying in bed and in mild distress, well-developed, well- nourished, appropriately interactive. HEENT: Normocephalic, atraumatic. External ears without defect. Pupils equal, round, and reactive to light. Anicteric sclerae, moist conjunctivae, and no lid lag. Oropharynx free of erythema and cobble stoning with moist mucosa. Neck: Supple with full range of motion. No jugular venous distension. No bruits. No lymphadenopathy or thyromegaly. Cardiovascular: Regular rate and rhythm with no murmurs, rubs, or gallops appreciated. Pulmonary: Clear to auscultation bilaterally with no crackles, wheezes, or rhonchi. Normal respiratory effort with no use of accessory muscles. Abdomen: Soft, obese, mild tenderness to palpation in periumbilical abdomen, nondistended, hyperactive bowel sounds present. No hepatosplenomegaly or masses appreciated. Extremities: No clubbing, cyanosis, or edema. Skin: Normal temperature, turgor, and texture; no rash, ulcers, or subcutaneous nodules appreciated. Neurological: Cranial nerves grossly intact. Normal muscle strength, tone, and bulk. Reflexes, coordination, and sensory function within normal limits. No known gait impairment. Psychiatric: Normal mood and affect. Alert and oriented to person, place, and time. IVs and Medications Medications Reviewed: Medications were reviewed in detail Lab and Diagnostics Result Diagram: 01/11/17 0740 01/11/17 0740 Microbiology Stool PCR positive for rotavirus A. . Assessment & Plan Nancy Kaplan is a 51-year-old year-old with a past medical history significant for diabetes mellitus type II, hypertension, and depression who presented to [facility] emergency Department with persistent diarrhea and generalized weakness 1 day and admitted for supportive symptom management. Hospital day #2. 1. Acute viral gastroenteritis, present on admission. Active. - Stool PCR positive for rotavirus A. - Ordered consistent carbohydrate diet and may advance as tolerated. - Closely monitor I&O's. - Continue contact precautions. - Continue symptomatic management including: IV fluid hydration NS 100 ml/hr, acetaminophen 975 mg every 6 hours, [place] 5/325 mg every 6 hours and Toradol 30 mg IV every 6 hours as needed for abdominal pain. - Added loperamide Chronic problems: 2. Diabetes mellitus type 2, non-insulin dependent. - Unknown A1c - ordered and pending. - Patient takes metformin 850 mg BID at home. - Continue low-dose correctional scale insulin. - Held metformin and may restart prior to discharge. 3. Hypertension, chronic, presume stable. - Continue home meds - losartan 100 mg daily. 4. Depression, chronic, presume stable. - Continue home meds: buspirone 15 mg BID and fluoxetine 60 mg daily. 5. Asthma, chronic, presume stable. - Continue albuterol nebs PRN. 6. Morbid obesity. - BMI 67.8 - Patient undergoing outpatient treatment and is in phase 2 of the process for gastric bypass. PRN antiemetics: Zofran and Maalox. PRN bowel regimen: Senna and MiraLAX. PRN analgesics: Tylenol, Toradol 30 mg IV and [place] 5/325 mg every 6 hours as needed for pain. Patient admitted under inpatient status with expected length of stay greater than 2 midnights for severity of present symptoms, complexities of treatment plan and risk for adverse events. . GI Prophylaxis: Proton Pump Inhibitor VTE Prophylaxis: Sub-Q Enoxaparin Resuscitation Status: CPR: Attempt Resuscitation Time spent 25 minutes Attending Statement I have seen and evaluated patient at bedside in addition to directly supervising care provided by resident physician. I agree with above documentation. Note, pt also suffering from fungal dermatitis of pannus, treated with topical nystatin powder. Anat Hernandes DO Jan 11, 2017 16:00 Blair Castillo DO Jan 12, 2017 08:27
[2017-01-11 20:27] VITALS: BP 144/88; PULSE 75; RESP 18; O2SAT 96
[2017-01-11] MEDS: Nystatin 100,000 Unit/Gm 15 Gm Powder TOPICAL SCH (21:05)
[2017-01-12 06:16] VITALS: BP 138/94; PULSE 78; RESP 18; O2SAT 96
[2017-01-12] MEDS: HYDROcodone-APAP 5-325 mg Tablet PO PRN ×2 (06:18→17:21)
[2017-01-12] MEDS: Pantoprazole 40 mg ER24 Tablet PO SCH (06:18)
--- NOTE | 2017-01-12 06:34 | NUR ---
Diarrhea/abd pain: Pt continues to have diarrhea but this has decreased in frequency from previous night. C/o abd pain x2, medication administered; effective. Pt slept off/on during the night, pleasant and cooperative with care.
[2017-01-12 07:14] LABS: BASOPHILS % (AUTO) 0.7 % (0-3); EOSINOPHILS % (AUTO) 9.3 % (0-5); MONOCYTES % (AUTO) 9.2 % (4-12); Mean Corpuscular Hemoglobin 26.6 pg (27.0-35.0); Mean Corpuscular Volume 86.1 fL (81-100); NEUTROPHILS % (AUTO) 44.2 % (40-74); Platelet Count 273 bil/L (150-400)
[2017-01-12] MEDS: Insulin LISPRO 300 Unit/3 mL Inj SUBQ SCH ×4 (08:00→22:00)
[2017-01-12] MEDS: 0.9% Sodium Chloride 1,000 ML IV SCH ×2 (08:28→17:22)
[2017-01-12] MEDS: BusPIRone 15 mg Dividose Tablet PO SCH ×2 (08:29→20:48)
[2017-01-12] MEDS: Nystatin 100,000 Unit/Gm 15 Gm Powder TOPICAL SCH ×2 (08:29→20:49)
[2017-01-12] MEDS: Ondansetron 2 mg/mL 2 mL Inj IVPUSH PRN (11:41)
--- NOTE | 2017-01-12 15:09 | PCM.PNMED ---
Subjective Date of Service Jan 12, 2017 Subjective Nancy Kaplan is a 51-year-old year-old with a past medical history significant for diabetes mellitus type II, hypertension, and depression who presented to [facility] emergency Department with persistent diarrhea and generalized weakness 1 day and admitted for supportive symptom management. Today, Ms. Kaplan reports that her bowel movements have decreased in frequency compared to yesterday. She is still nauseous and feels dehydrated. Her abdomen will cramp prior to bowel movements. She ate a full breakfast this morning but then had a bowel movement 5 minutes later. She does not have fever or chills. Exam Vital Signs Vital Sign - Last Date Time Temp Pulse Resp B/P Pulse Ox O2 Delivery O2 Flow Rate FiO2 01/12/17 06:16 36.5 78 18 138/94 96 Room Air Intake and Output 01/11/17 01/11/17 01/12/17 Cumulative From/Thru 15:00 23:00 07:00 01/08/17 16:32 - 01/12/17 06:36 Intake Total 350 ml 1375 ml 976 ml 78823 ml Output Total 1050 ml 1850 ml 6903 ml Balance -700 ml -475 ml 976 ml 6852 ml Intake Oral 350 ml 400 ml 3800 ml IV Total 975 ml 976 ml 9955 ml Output Urine Total 375 ml Stool Total 1050 ml 2925 ml Urine/Stool Mix 1850 ml 3600 ml Emesis 3 ml # Voids 2 8 # Bowel Movements 2 5 16 Exam General: Obese female lying in bed and in mild distress, well-developed, well- nourished, appropriately interactive. HEENT: Normocephalic, atraumatic. External ears without defect. Pupils equal, round, and reactive to light. Anicteric sclerae, moist conjunctivae, and no lid lag. Oropharynx free of erythema and cobble stoning with moist mucosa. Neck: Supple with full range of motion. No lymphadenopathy or thyromegaly. Cardiovascular: Regular rate and rhythm with no murmurs, rubs, or gallops appreciated. Pulmonary: Clear to auscultation bilaterally with no crackles, wheezes, or rhonchi. Normal respiratory effort with no use of accessory muscles. Abdomen: Soft, obese, mild tenderness to palpation in mid abdomen, nondistended , hyperactive bowel sounds present. No hepatosplenomegaly or masses appreciated. Extremities: No clubbing, cyanosis, or edema. Skin: Abdominal erythema at skin folds. Normal temperature, turgor, and texture ; no ulcers appreciated. Neurological: Cranial nerves grossly intact. Normal muscle strength, tone, and bulk. Psychiatric: Normal mood and affect. Alert and oriented to person, place, and time. IVs and Medications Medications Reviewed: Medications were reviewed in detail Lab and Diagnostics Result Diagram: 01/12/1764401/12/17644 Microbiology Stool PCR positive for rotavirus A. . Assessment & Plan Nancy Kaplan is a 51-year-old year-old with a past medical history significant for diabetes mellitus type II, hypertension, and depression who presented to [facility] emergency Department with persistent diarrhea and generalized weakness 1 day and admitted for supportive symptom management. Hospital day #2. 1. Acute viral gastroenteritis, present on admission. Active. - Stool PCR positive for rotavirus A. - Ordered consistent carbohydrate diet and may advance as tolerated. - Closely monitor I&O's. - Continue contact precautions. - Continue symptomatic management including: IV fluid hydration NS 100 ml/hr, acetaminophen 975 mg every 6 hours, [place] 5/325 mg every 6 hours and Toradol 30 mg IV every 6 hours as needed for abdominal pain. - Continue loperamide - CT abdomen and pelvis with contrast to further evaluate her abdominal pain, persistent diarrhea, and elevated liver enzymes. Pre-treatment for contrast allergy ordered according to protocol. Chronic problems: 2. Diabetes mellitus type 2, non-insulin dependent. - Unknown A1c - ordered and pending. - Patient takes metformin 850 mg BID at home. - Continue low-dose correctional scale insulin. - Held metformin and may restart prior to discharge. 3. Hypertension, chronic, presume stable. - Continue home meds - losartan 100 mg daily. 4. Depression, chronic, presume stable. - Continue home meds: buspirone 15 mg BID and fluoxetine 60 mg daily. 5. Asthma, chronic, presume stable. - Continue albuterol nebs PRN. 6. Morbid obesity. - BMI 67.8 - Patient undergoing outpatient treatment and is in phase 2 of the process for gastric bypass. 7. Abdominal rash. -Nystatin powder twice per day PRN antiemetics: Zofran and Maalox. PRN bowel regimen: Senna and MiraLAX. PRN analgesics: Tylenol, Toradol 30 mg IV and [place] 5/325 mg every 6 hours as needed for pain. Patient admitted under inpatient status with expected length of stay greater than 2 midnights for severity of present symptoms, complexities of treatment plan and risk for adverse events. . GI Prophylaxis: Proton Pump Inhibitor VTE Prophylaxis: Sub-Q Enoxaparin VTE Mechanical Devices: Venous Foot Pump Resuscitation Status: CPR: Attempt Resuscitation Time spent 25 minutes Attending Statement I have seen and evaluated patient at bedside in addition to directly supervising care provided by resident physician. I agree with above documentation. Anat Hernandes DO Jan 12, 2017 14:43 Blair Castillo DO Jan 13, 2017 07:53
[2017-01-12 16:00] VITALS: BP 130/74; PULSE 66; RESP 20; O2SAT 98
--- NOTE | 2017-01-12 17:33 | NUR ---
Shift report Pleasant pt, able to make needs known. Uses call light appropriately. SBA to BSC d/t weakness. Had 5 diarrhea stools today, Imodium given-was effective. BG WNL-no need for insulin. Such noted to MD to possibly d/c AC/HS checks. Pt tolerating IVF well. Bed in low position, 3 rails up per pt request, call light within reach. Will continue to monitor.
[2017-01-12] MEDS: predniSONE 20 mg Tablet PO SCH (20:48)
[2017-01-12 22:02] VITALS: BP 132/73; PULSE 77; RESP 20; O2SAT 96
[2017-01-13] MEDS: predniSONE 20 mg Tablet PO SCH ×2 (02:50→08:38)
[2017-01-13] MEDS: 0.9% Sodium Chloride 1,000 ML IV SCH (04:18)
[2017-01-13] MEDS ORDERED: diphenhydrAMINE 25 mg Capsule PO SCH (06:00)
[2017-01-13] MEDS: Pantoprazole 40 mg ER24 Tablet PO SCH (06:22)
[2017-01-13 06:35] VITALS: BP 154/73; PULSE 74; RESP 20; O2SAT 97
[2017-01-13 06:42] LABS: BASOPHILS % (AUTO) 0.5 % (0-3); EOSINOPHILS % (AUTO) 0.1 % (0-5); Mean Corpuscular Hemoglobin 26.7 pg (27.0-35.0); Mean Corpuscular Volume 84.3 fL (81-100); NEUTROPHILS % (AUTO) 79.2 % (40-74); Platelet Count 339 bil/L (150-400)
--- NOTE | 2017-01-13 09:56 | DRSVH ---
PROCEDURE: CT ABDOMEN AND PELVIS WITHOUT CONTRAST ([id number]) INDICATIONS: persistent abdominal pain TECHNIQUE: After the administration of oral contrast, 5 mm thick sections acquired from the diaphragms to the sy mphysis. 5 mm coronal and sagittal reformats were performed. For radiation dose reduction, the foll owing was used: automated exposure control, adjustment of mA and/or kV according to patient size. COMPARISON: None. FINDINGS: Image quality: Excellent. ABDOMEN: Lung bases: Lung bases are clear. Heart size is normal. Solid organs: Liver and spleen are normal in size. Gallbladder is surgically absent. Pancreas is n ormal in size. No adrenal nodules. Both kidneys are normal in size, without hydronephrosis or nephr olithiasis. Peritoneum and bowel: Bowel loops demonstrate normal wall thickness and caliber. No free fluid or a ir. There is diverticulosis of the descending and sigmoid colon. There is no evidence of acute diver ticulitis. Normal appendix. Nodes and vessels: No retroperitoneal or mesenteric adenopathy by size criteria. Aorta and inferior vena cava are normal in size. Miscellaneous: 17 mm fat-containing umbilical hernia. PELVIS: Genitourinary: Bladder wall thickness is normal. Miscellaneous: No inguinal hernias or adenopathy. Bones: No suspicious bony lesions. No vertebral body compression fractures. IMPRESSION: 1. No acute process. No explanation for epigastric pain. 2. Normal appendix. 3. No evidence of urinary tract calcification, nor obstruction. 4. Small fat-containing umbilical hernia. Dictated by: Yumiko Davidson M.D. on 01/13/2017 at 9:52 Approved by: Yumiko Davidson M.D. on 01/13/2017 at 9:55
[2017-01-13] MEDS: BusPIRone 15 mg Dividose Tablet PO SCH ×2 (10:18→21:18)
[2017-01-13] MEDS: Nystatin 100,000 Unit/Gm 15 Gm Powder TOPICAL SCH ×2 (10:19→21:21)
[2017-01-13] MEDS: Insulin LISPRO 300 Unit/3 mL Inj SUBQ SCH ×4 (10:20→21:31)
[2017-01-13 12:16] VITALS: BP 143/67; PULSE 82; RESP 20; O2SAT 96
--- NOTE | 2017-01-13 16:29 | PCM.PNMED ---
Subjective Date of Service Jan 13, 2017 Subjective Nancy Kaplan is a 51-year-old year-old with a past medical history significant for diabetes mellitus type II, hypertension, and depression who presented to [facility] emergency Department with persistent diarrhea and generalized weakness 1 day and admitted for supportive symptom management. Today, Ms. Kaplan reports that she feels better. She continues to have decreased frequency of bowel movements. She had heartburn last night that resolved. She continues to have some nausea and abdominal cramping. She is working with a therapist and is in a program for bariatric surgery. She plans to continue both once she is discharged. Exam Vital Signs Vital Sign - Last Date Time Temp Pulse Resp B/P Pulse Ox O2 Delivery O2 Flow Rate FiO2 01/13/17 12:16 36.6 82 20 143/67 96 Room Air Intake and Output 01/12/17 01/12/17 01/13/17 Cumulative From/Thru 15:00 23:00 07:00 01/08/17 16:32 - 01/12/17 20:55 Intake Total 400 ml 1990 ml 39465 ml Output Total 2050 ml 600 ml 9553 ml Balance -1650 ml 1390 ml 6592 ml Intake Oral 400 ml 820 ml 5020 ml IV Total 1170 ml 26208 ml Output Urine Total 600 ml 975 ml Stool Total 2925 ml Urine/Stool Mix 2050 ml 5650 ml Emesis 3 ml # Voids 8 # Bowel Movements 4 3 23 Exam General: Obese female sitting up in bed and in no acute distress, well-developed , well-nourished, appropriately interactive. HEENT: Normocephalic, atraumatic. External ears without defect. Pupils equal, round, and reactive to light. Anicteric sclerae, moist conjunctivae, and no lid lag. Neck: Supple with full range of motion. No lymphadenopathy or thyromegaly. Cardiovascular: Regular rate and rhythm with no murmurs, rubs, or gallops appreciated. Pulmonary: Clear to auscultation bilaterally with no crackles, wheezes, or rhonchi. Normal respiratory effort with no use of accessory muscles. Abdomen: Soft, obese, mild tenderness to palpation in mid abdomen, nondistended , hyperactive bowel sounds present. No hepatosplenomegaly or masses appreciated. Extremities: No clubbing, cyanosis, or edema. Skin: Abdominal erythema at skin folds improved. Normal temperature, turgor, and texture; no ulcers appreciated. Neurological: Cranial nerves grossly intact. Normal muscle strength, tone, and bulk. Psychiatric: Normal mood and affect. Alert and oriented to person, place, and time. IVs and Medications Medications Reviewed: Medications were reviewed in detail Lab and Diagnostics Result Diagram: 01/13/1762301/13/17623 Microbiology Stool PCR positive for rotavirus A. . Assessment & Plan Nancy Kaplan is a 51-year-old year-old with a past medical history significant for diabetes mellitus type II, hypertension, and depression who presented to [facility] emergency Department with persistent diarrhea and generalized weakness 1 day and admitted for supportive symptom management. Hospital day #2. 1. Acute viral gastroenteritis, present on admission. Active. - Stool PCR positive for rotavirus A. CT abdomen and pelvis showed a small umbilical hernia but no acute abnormalities. - Ordered consistent carbohydrate diet and may advance as tolerated. - Closely monitor I&O's. - Continue contact precautions. - Continue symptomatic management including: acetaminophen 975 mg every 6 hours , [place] 5/325 mg every 6 hours and Toradol 30 mg IV every 6 hours as needed for abdominal pain. - Continue loperamide -Stopped normal saline today and will monitor overnight for continued improvement and stability with only PO intake Chronic problems: 2. Diabetes mellitus type 2, non-insulin dependent. - Unknown A1c - ordered and pending. - Patient takes metformin 850 mg BID at home. - Continue low-dose correctional scale insulin. - Held metformin and may restart prior to discharge. 3. Hypertension, chronic, presume stable. - Continue home meds - losartan 100 mg daily. 4. Depression, chronic, presume stable. - Continue home meds: buspirone 15 mg BID and fluoxetine 60 mg daily. 5. Asthma, chronic, presume stable. - Continue albuterol nebs PRN. 6. Morbid obesity. - BMI 67.8 - Patient undergoing outpatient treatment and is in phase 2 of the process for gastric bypass. 7. Abdominal rash. -Nystatin powder twice per day PRN antiemetics: Zofran and Maalox. PRN bowel regimen: Senna and MiraLAX. PRN analgesics: Tylenol, Toradol 30 mg IV and [place] 5/325 mg every 6 hours as needed for pain. Patient admitted under inpatient status with expected length of stay greater than 2 midnights for severity of present symptoms, complexities of treatment plan and risk for adverse events. . GI Prophylaxis: Proton Pump Inhibitor VTE Prophylaxis: Sub-Q Enoxaparin VTE Mechanical Devices: Venous Foot Pump Resuscitation Status: CPR: Attempt Resuscitation Time spent 20- minutes Attending Statement I have seen and evaluated patient at bedside in addition to directly supervising care provided by resident physician. I agree with above documentation. Anat Hernandes DO Jan 13, 2017 16:29 Blair Castillo DO Jan 14, 2017 08:04
[2017-01-13 16:45] VITALS: BP 128/67; PULSE 80; RESP 21; O2SAT 94
[2017-01-13] MEDS: HYDROcodone-APAP 5-325 mg Tablet PO PRN (21:25)
[2017-01-13 22:02] VITALS: BP 116/66; PULSE 79; RESP 20; O2SAT 95
[2017-01-14 06:12] VITALS: BP 111/65; PULSE 82; RESP 20; O2SAT 97
[2017-01-14 06:30] LABS: BASOPHILS % (AUTO) 0.2 % (0-3); EOSINOPHILS % (AUTO) 0.2 % (0-5); MONOCYTES % (AUTO) 6.4 % (4-12); Mean Corpuscular Volume 83.7 fL (81-100); NEUTROPHILS % (AUTO) 80.2 % (40-74); Platelet Count 292 bil/L (150-400)
[2017-01-14] MEDS: Insulin LISPRO 300 Unit/3 mL Inj SUBQ SCH ×2 (07:59→11:56)
[2017-01-14] MEDS: BusPIRone 15 mg Dividose Tablet PO SCH (08:00)
[2017-01-14] MEDS: Pantoprazole 40 mg ER24 Tablet PO SCH (08:00)
[2017-01-14] MEDS: Nystatin 100,000 Unit/Gm 15 Gm Powder TOPICAL SCH (08:01)
[2017-01-14 09:05] VITALS: BP 107/71; PULSE 77; RESP 20; O2SAT 95
[2017-01-14] MEDS ORDERED: Potassium Chloride 20 mEq SR Tablet PO ONE (09:35)
--- NOTE | 2017-01-14 10:31 | NUR ---
NUTRITION FOLLOW-UP: ASSESS: 51 YO female admitted for acute viral gastroenteritis with diarrhea and dehydration. She is on a Diabetic diet and tolerating well at 100% of most meals. Per MD note, prior to admit pt was working with a therapist in preparation for gastric bypass surgery. PMHx: DM type 2, HTN, depression, morbid obesity, asthma. LABS: Reviewed. K 3.3, Glu 150, ALT 61, Alb 3.5 MEDS: Reviewed. GI: BM x 2 01/13. CURRENT WT: 184.4 kg. BMI 65.6kg/m2 Adj BW: 90.4 kg. admit wt 190kg DIET: Diabetic. PO 100%. EST. NEEDS: [id number] kcals (25-30 kcals/kg Adj BW), 110-135 g protein (1.2-1.5 g/kg Adj BW) NUTRITION DIAGNOSIS: 1.) No nutritional diagnosis at this time. NUTRITION INTERVENTION: 1.) No nutritional intervention at this time. MONITOR / EVAL: PO intake, labs, GI and nutritional status. Will continue to follow per moderate nutritional risk guidelines.
[2017-01-14] MEDS: HYDROcodone-APAP 5-325 mg Tablet PO PRN (12:00)
[2017-01-14 13:10] VITALS: BP 110/67; PULSE 82; RESP 20; O2SAT 97
[2017-01-14] MEDS ORDERED: LOPE2CAP PO (13:23)
--- NOTE | 2017-01-14 13:29 | PCM.DIMED ---
Anat Hernandes DO 01/14/17 1329: Discharge Instructions Date of Service Jan 14, 2017 Dates of Hospitalization Jan 08, 2017 at 21:39 Discharge Diagnosis Discharge Diagnosis 1. Acute viral gastroenteritis Chronic problems: 2. Diabetes mellitus type 2, non-insulin dependent. 3. Hypertension, chronic 4. Depression, chronic 5. Asthma, chronic 6. BMI 67.8. 7. Abdominal rash. Diet Heart Healthy, Diabetic Activity Limited until seen by PCP Call your provider Fever or Chills, Shortness of breath, Bleeding, Chest pain, Vomitting Patient Instructions Continue your medications as previously prescribed. Monitor your blood sugar levels. You can continue loperamide as needed for diarrhea. Do not exceed 8 capsules or tablets in a 24 hour period. Drink plenty of fluids. Make sure to wash your hands with soap and water after using the bathroom. Follow up with your primary care provider in 1 week with follow up labs, CBC and CMP, rechecked at that time. Follow-up Provider: Luz Hayes MD Follow-up with PCP in: 1 week Blair Castillo DO 01/15/17 1528: Discharge Instructions Attending's Statement Read and agree Anat Hernandes DO Jan 14, 2017 13:29 Blair Castillo DO Jan 15, 2017 15:28
[2017-01-14] MEDS ORDERED: ONDA4TAB12 PO (14:00)
[2017-01-14] MEDS ORDERED: NYST1POW25 TOPICAL (14:00)
[2017-01-14] MEDS: Ondansetron 2 mg/mL 2 mL Inj IVPUSH PRN (14:02)
--- NOTE | 2017-01-14 17:25 | NUR ---
Discharge Reviewed d/c instructions with pt including care notes and new prescriptions, pt signed and given original, copies to chart. IV d/c intact, no tele. VS stable at d/c. All belongings packed by pt and taken with her. Pt taken off unit via WC, family member to drive her home.
--- NOTE | 2017-01-14 19:15 | PCM.DC.MED ---
Discharge Summary Date of Service Jan 14, 2017 Dates of Hospitalization Date of Hospital Admission Jan 08, 2017 at 21:39 Date of Discharge: Jan 14, 2017 Providers: Admitting Physician: Keya Jean DO Primary Care Physician: Luz Hayes MD Attending Physician: Keya Jean DO Diagnosis at Time of Discharge Diagnosis at Time of Discharge 1. Acute viral gastroenteritis Chronic problems: 2. Diabetes mellitus type 2, non-insulin dependent. 3. Hypertension, chronic 4. Depression, chronic 5. Asthma, chronic 6. BMI 67.8. 7. Abdominal rash. Procedures XRay, CTs & MRIs PROCEDURE: CT ABDOMEN AND PELVIS WITHOUT CONTRAST IMPRESSION: 1. No acute process. No explanation for epigastric pain. 2. Normal appendix. 3. No evidence of urinary tract calcification, nor obstruction. 4. Small fat-containing umbilical hernia. Approved by: Yumiko Davidson M.D. on 01/13/2017 at 9:55 Brief History From the history and physical performed by Dr. Luz Rhaman on 01/13/2017 : Patient is a 51 year old female with a history of DM type 2, HTN, and depression. She presented to [facility] on 01/08/17 with persistent diarrhea and generalized weakness. The diarrhea began earlier in the day. She reports numerous episodes, probably greater than 20. She describes the stool as feeling like liquid/water and it is yellow/orange in color. She denies any bloody stools and has not seen any solid brown stool. She has been quite nauseated with no vomiting and she does have abdominal pain in the area of the umbilicus. Bloating and belching have also been noted. She has a poor appetite as a consequence of her symptoms. She denies fever but has been chilled with mild rigors. No difficulties with urination such as dysuria and no hematuria noted. The patient decided to come to the hospital when she felt as though she was about to pass out. Her generalized weakness had progressed to the point that she thought she was becoming dehydrated. Her diarrhea was also becoming more difficult to control and she was not making it to the bathroom in time to use the toilet. Her last meal was breakfast on 01/08/17. She had toast and half a banana. Yesterday she recalls eating fish sticks and corn for dinner. Other family members also ate this meal and did not become ill. The patient denies any recent travel or camping. She has not knowingly consumed water from a well, stream or downs. She has not been on antibiotics in the last month or so. The only new thing to her daily routine is the use of an [employer]oc[employer] powder called "Greens." The powder is dissolved in water and can be used as a nutritional supplement for vegetables. The patient is in phase two of the process of gastric bypass surgery. In the ED the patient was afebrile with a heart rate of 108, respiratory rate 22 , blood pressure 150/99 and O2 saturation 97% on room air. Labs were remarkable for WBC 14.5, and blood glucose 158. Stool PCR was ordered by Dr. Mason. IV fluids initiated. Case discussed with Dr. Mason. Patient to be admitted inpatient to [facility] for further IV hydration. Hospital Course Nancy Kaplan is a 51-year-old year-old with a past medical history significant for diabetes mellitus type II, hypertension, and depression who presented to [facility] emergency Department with persistent diarrhea and generalized weakness 1 day and admitted for supportive symptom management. 1. Acute viral gastroenteritis, present on admission. Active. - Stool PCR positive for rotavirus A. CT abdomen and pelvis showed a small umbilical hernia but no acute abnormalities. - Continued contact precautions. - Continued symptomatic management including: acetaminophen 975 mg every 6 hours , [place] 5/325 mg every 6 hours and Toradol 30 mg IV every 6 hours as needed for abdominal pain. - Continued loperamide as needed for diarrhea and ondansetron as needed for nausea/vomiting - Stopped normal saline and monitored overnight for continued improvement and stability with only PO intake - Recommend follow up CBC and CMP in 1 week with follow up appointment with primary care provider Chronic problems: 2. Diabetes mellitus type 2, non-insulin dependent. - Unknown A1c 7.4% - Resumed metformin 850 mg BID at discharge and advised patient to monitor blood glucose level 3. Hypertension, chronic, presume stable. - Continued home medications - losartan 100 mg daily. 4. Depression and anxiety, chronic, presume stable. - Continued home medications: buspirone 15 mg BID and fluoxetine 60 mg daily. 5. Asthma, chronic, presume stable. - Continued albuterol nebs as needed 6. Morbid obesity. - BMI 67.8 initially. BMI 65.6 on day of discharge - Patient undergoing outpatient treatment and is in phase 2 of the process for gastric bypass. 7. Abdominal rash. -Continued nystatin powder twice per day 8. Chest discomfort. -Patient had mild chest discomfort that was reproducible on exam and improved with deep breaths and worsened with anxiety. -EKG did not show any concerning ST segment abnormalities 9. Hypokalemia. -Patient's potassium 3.3 on day of discharge -Patient given 40 meq of potassium chloride -Repeat CMP at follow up appointment with primary care provider Exam Vital Signs (Last) Date Time Temp Pulse Resp B/P Pulse Ox O2 Delivery O2 Flow Rate FiO2 01/14/17 13:10 36.5 82 20 110/67 97 Room Air Exam General: Obese female sitting up in bed and in no acute distress, well-developed , well-nourished, appropriately interactive. HEENT: Normocephalic, atraumatic. External ears without defect. Pupils equal, round, and reactive to light. Anicteric sclerae, moist conjunctivae, and no lid lag. Neck: Supple with full range of motion. No lymphadenopathy or thyromegaly. Cardiovascular: Regular rate and rhythm with no murmurs, rubs, or gallops appreciated. Pulmonary: Clear to auscultation bilaterally with no crackles, wheezes, or rhonchi. Normal respiratory effort with no use of accessory muscles. Abdomen: Soft, obese, mild tenderness to palpation in mid abdomen, nondistended , hyperactive bowel sounds present. No hepatosplenomegaly or masses appreciated. Extremities: No clubbing, cyanosis, or edema. Skin: Abdominal mild erythema at skin folds, improving. Normal temperature, turgor, and texture; no ulcers appreciated. Neurological: Cranial nerves grossly intact. Normal muscle strength, tone, and bulk. Psychiatric: Normal mood and affect. Alert and oriented to person, place, and time. Test 01/08/17 18:00 01/09/17 05:50 01/09/17 07:10 01/10/17 07:10 Hemoglobin A1c 7.4% (4.8-5.6) Lipase 19U/L (13-60) Phosphorus Level 2.5mg/dL (2.5-4.9) Magnesium Level 1.8mg/dL (1.6-2.6) Lactic Acid Level 0.7mmol/L (0.4-2.0) Procalcitonin 0.06ng/mL (0.00-0.08) Test 01/14/17 06:05 White Blood Count 17.6th/mm3 (3.8-10.1) Red Blood Count 4.35mil/mm3 (3.90-5.20) Hemoglobin 11.3g/dL (12.0-15.6) Hematocrit 36.4% (35.0-46.0) Mean Corpuscular Volume 83.7fL (81-100) Mean Corpuscular Hemoglobin 26.0pg (27.0-35.0) Mean Corpuscular Hemoglobin Concent 31.0% (32.0-37.0) Red Cell Distribution Width 14.9% (12.3-15.4) Platelet Count 292bil/L (150-400) Neutrophils (%) (Auto) 80.2% (40-74) Lymphocytes (%) (Auto) 12.8% (14-46) Monocytes (%) (Auto) 6.4% (4-12) Eosinophils (%) (Auto) 0.2% (0-5) Basophils (%) (Auto) 0.2% (0-3) Sodium Level 137mEq/L (134-144) Potassium Level 3.3mEq/L (3.5-5.2) Chloride Level 102mEq/L (97-108) Carbon Dioxide Level 18mmol/L (18-29) Blood Urea Nitrogen 8mg/dL (6-24) Creatinine 0.76mg/dL (0.57-1.00) Estimat Glomerular Filtration Rate 114mL/min (>59) Glucose Level 150mg/dL (60-99) Calcium Level 8.6mg/dL (8.5-10.1) Total Bilirubin 0.3mg/dL (0.0-1.2) Aspartate Amino Transf (AST/SGOT) 48U/L (0-50) Alanine Aminotransferase (ALT/SGPT) 61U/L (0-32) Alkaline Phosphatase 74U/L (25-150) Total Protein 6.7g/dL (6.4-8.4) Albumin 3.5g/dL (3.4-5.0) Microbiology Results Stool PCR positive for rotavirus A. . Discharge Medications Discharge Medications Aspirin (Aspirin) 325 Mg Tablet 325 MG PO DAILY (Reported) Buspirone (Buspirone) 15 Mg Tablet 15 MG PO BID (Reported) Fluoxetine (Fluoxetine) 60 Mg Tablet 60 MG PO DAILY (Reported) Losartan Potassium (Losartan Potassium) 100 Mg Tablet 100 MG PO DAILY (Reported ) Metformin (Metformin) 850 Mg Tablet 850 MG PO BID (Reported) Nystatin (Nystatin) 1 Each Powder.ea. 1 APPLIC TOPICAL BID Prescribed by: ANAT HERNANDES DO Omeprazole (Omeprazole) 20 Mg Tablet.dr 20 MG PO DAILY (Reported) As needed Albuterol HFA (Proair HFA) 8.5 Gm Hfa.aer.ad 2 PUFFS INHALATION Q4H PRN PRN For Shortness of Breath (Reported) Beclomethasone Dipropionate (Qvar) 8.7 Gm Aer.w.adap 2 PUFFS INHALATION PRN For Shortness of Breath (Reported) Cyclobenzaprine (Cyclobenzaprine) 10 Mg Tablet 10 MG PO TID PRN PRN For Pain ( Reported) Fluticasone Propionate (Flonase Allergy Relief) 50 Mcg/Actuation [place].susp 1 SPR NASAL PRN For Congestion (Reported) Hydrocodone-Acetaminophen 5-325 mg (Hydrocodone-Acetaminophen 5-325 mg) 1 Each Tablet 1-2 TABLET PO QID PRN PRN For Pain (Reported) Ibuprofen (Ibuprofen) 800 Mg Tablet 800 MG PO TID PRN PRN For Pain (Reported) Loperamide (Loperamide) 2 Mg Capsule 2 MG PO Q6H PRN PRN For Diarrhea or Loose Stool Do not exceed 8 tablets or capsules in 24 hours. Prescribed by: ANAT HERNANDES DO Lorazepam (Ativan) 2 Mg Tablet 2 MG PO prn PRN PRN For Insomnia (Reported) Ondansetron ODT (Ondansetron ODT) 4 Mg Tab.rapdis 4 MG PO Q8H PRN PRN For Nausea /Vomiting Prescribed by: ANAT HERNANDES DO Followup Plan Discharge Diet: Heart Healthy, Diabetic Discharge Activity: Limited until seen by PCP Patient Instructions Continue your medications as previously prescribed. Monitor your blood sugar levels. You can continue loperamide as needed for diarrhea. Do not exceed 8 capsules or tablets in a 24 hour period. Drink plenty of fluids. Make sure to wash your hands with soap and water after using the bathroom. Follow up with your primary care provider in 1 week with follow up labs, CBC and CMP, rechecked at that time. Follow-up Provider: Luz Hayes MD Follow-up with PCP in: 1 week Time spent 35 minutes Attending Statement I have seen and evaluated patient at bedside in addition to directly supervising care provided by resident physician. I agree with above documentation. Noted, Nystatin powder was in fact started, not continued, for candidal dermatitis. Anat Hernandes DO Jan 14, 2017 17:57 Blair Castillo DO Jan 15, 2017 15:49
== END 2017-01-14 17:22 | disposition home or self-care (01) | DRG 392 ==
LOC: SED 16:24 → MPC 21:39
PROVIDERS: ADMIT Internal Medicine; ATTEND Internal Medicine
DX: A08.0 Rotaviral enteritis (principal); Z68.44 Body mass index [BMI] 60.0-69.9, adult; I10 Essential (primary) hypertension; E66.01 Morbid (severe) obesity due to excess calories; Z79.82 Long term (current) use of aspirin; E86.0 Dehydration; Z98.84 Bariatric surgery status; J45.909 Unspecified asthma, uncomplicated; F32.9 Major depressive disorder, single episode, unspecified; R21 Rash and other nonspecific skin eruption; E11.9 Type 2 diabetes mellitus without complications; E87.6 Hypokalemia; Z79.84 Long term (current) use of oral hypoglycemic drugs

== ENCOUNTER 2017-03-22 16:25 | Emergency (ER) | payer OTHER ==
[~2017-03-22] VITALS: Ht 167.6 cm; Wt 179.1 kg
[~2017-03-22 16:25] MED LIST changes: +ALBU8.5H2 INHALATION; +BECL8.7A5 INHALATION; -BENZ-12 PO; +BUSP15TA3 PO; -CLIN-78 PO; -D ME PO; +FLUT9.9S NASAL; -HYDR473S48 PO; +LOPE2CAP PO; -METF500T4 PO; +METF850T2 PO; +NYST1POW25 TOPICAL; +OMEP20TA86 PO; +ONDA4TAB12 PO
[2017-03-22 16:44] VITALS: BP 145/97; PULSE 82; RESP 17; O2SAT 100
--- NOTE | 2017-03-22 17:58 | DRSVH ---
PROCEDURE: X-RAY LEFT KNEE, THREE VIEWS ([id number]) INDICATIONS: 51 year-old female with left knee pain after ground level fall. TECHNIQUE: 3 views of the knee were acquired. COMPARISON: [facility], , XR KNEE 3VW LT, 10/02/2015, 20:30. FINDINGS: Bones: No fractures or dislocations. There is severe left knee joint degeneration. No suspicious jovanny ny lesions. Soft tissues: No joint effusion. No suspicious soft tissue calcifications. IMPRESSION: Severe left knee joint degeneration, without acute bony injuries. Dictated by: Danny Rubio M.D. on 03/22/2017 at 17:51 Approved by: Danny Rubio M.D. on 03/22/2017 at 17:51
--- NOTE | 2017-03-22 18:43 | ED.REPORT ---
HPI-Extremity Problem Lower Date of Service March 22, 2017 ED Provider: Leo Owens PA-C Nancy is a 51-year-old female with a history of morbid obesity and knee arthritis presenting with a chief complaint of right knee pain. Patient reports that she was walking up a short flight of stairs with her cane when she stumbled and fell, landed first on her left knee and then falling over to her left side. Reports pain in her left hip and knee such that it was difficult for her to get to the car. She denies numbness/tingling in the extremity. Denies striking her head, losing consciousness, neck pain. Nursing Notes Stated Complaint: FELL DOWN STAIRS, ON KNEE Chief Complaint: Extremity Trauma Nursing Notes Reviewed: Yes Allergies: Coded Allergies: Penicillins (Verified Allergy, Severe, HOT, SEVERE RASH,ANXIETY, 03/22/17) cephalexin (Verified Allergy, Intermediate, rash, 03/22/17) Iodinated Contrast Media - Oral and (Verified Allergy, Mild, Rash,Itching, , 03/22/17) Pt said she got blotchy and itchy after having IV dye injected. kld 01/12/17 Scheduled Aspirin (Aspirin) 325 Mg Tablet 325 MG PO DAILY Buspirone (Buspirone) 15 Mg Tablet 15 MG PO BID Fluoxetine (Fluoxetine) 60 Mg Tablet 60 MG PO DAILY Losartan Potassium (Losartan Potassium) 100 Mg Tablet 100 MG PO DAILY Metformin (Metformin) 850 Mg Tablet 850 MG PO BID Nystatin (Nystatin) 1 Each Powder.ea. 1 APPLIC TOPICAL BID Omeprazole (Omeprazole) 20 Mg Tablet.dr 20 MG PO DAILY Scheduled PRN Albuterol HFA (Proair HFA) 8.5 Gm Hfa.aer.ad 2 PUFFS INHALATION Q4H PRN PRN For Shortness of Breath Beclomethasone Dipropionate (Qvar) 8.7 Gm Aer.w.adap 2 PUFFS INHALATION PRN For Shortness of Breath Cyclobenzaprine (Cyclobenzaprine) 10 Mg Tablet 10 MG PO TID PRN PRN For Pain Fluticasone Propionate (Flonase Allergy Relief) 50 Mcg/Actuation [place].susp 1 SPR NASAL PRN For Congestion Hydrocodone-Acetaminophen 5-325 mg (Hydrocodone-Acetaminophen 5-325 mg) 1 Each Tablet 1-2 TABLET PO QID PRN PRN For Pain Ibuprofen (Ibuprofen) 800 Mg Tablet 800 MG PO TID PRN PRN For Pain Loperamide (Loperamide) 2 Mg Capsule 2 MG PO Q6H PRN PRN For Diarrhea or Loose Stool Do not exceed 8 tablets or capsules in 24 hours. Lorazepam (Ativan) 2 Mg Tablet 2 MG PO prn PRN PRN For Insomnia Ondansetron ODT (Ondansetron ODT) 4 Mg Tab.rapdis 4 MG PO Q8H PRN PRN For Nausea /Vomiting General Time Seen by MD: 18:42 Chief Complaint Knee injury left Past Medical History Past Medical History LLE cellulitis requiring admission Nov 13, 2015 bronchitis asthma Reports: Asthma Reports: Morbid Obesity Past Surgical History Right elbow ortho BCTR Patient has a midline scar - ?Xlap for unclear cause - not sure if gallbladder may have been removed ("I had stones") Social History Other Social History: Good social support, Local resident Ambulatory Status Independent Review of Systems Negative unless stated otherwise in history of present illness Physical Exam General: Well appearing, well developed, morbidly obese, no acute distress. Sitting in the hallway in a wheelchair. Left hip: Tender to palpation, limited range of motion. Left knee: Inspection limited by excessive tissue, landmarks difficult to discern. small bruise noted on anterior portion. Diffusely tender. Reduced range of motion. Left foot/ankle: Small area of bruising on the dorsal aspect of the foot. Tender over the navicular, base of the fifth metatarsal. Nontender over the malleoli, anterior talofibular, calcaneofibular, posterior talofibular, deltoid ligaments. DP and PT pulses 2+. Head: Atraumatic, normocephalic. Eyes: No scleral icterus or injection. No discharge. Vision grossly intact. ENT: Voice clear, hearing grossly intact. Respiratory: No respiratory distress, no increased work of breathing. Speaks in complete sentences. Skin: Warm and dry. Neurological: Grossly nonfocal. Psychological: alert and oriented. Speech appropriate, linear and logical. Behavior appropriate. Initial Vital Signs Vital Signs (First) Date Time Temp Pulse Resp B/P Pulse Ox O2 Delivery O2 Flow Rate FiO2 03/22/17 16:44 36.4 82 17 145/97 100 Initial VS: Vital signs abnormal (elevated blood pressure) Interpretation & Diagnostics X-Ray Interpretation Xray Interpretation: PROCEDURE: X-RAY LEFT KNEE, THREE VIEWS ([id number]) INDICATIONS: 51 year-old female with left knee pain after ground level fall. IMPRESSION: Severe left knee joint degeneration, without acute bony injuries. Interpretation / Wet Read by: Discussed w radiologist Xray Interpretation: PROCEDURE: X-RAY LEFT HIP COMPLETE, MINIMUM TWO VIEWS ([id number]) INDICATIONS: 51 year-old female with left hip pain after fall. IMPRESSION: No acute bony injuries of the left hip. Interpretation / Wet Read by: Interpret - Radiologist Xray Interpretation: PROCEDURE: X-RAY LEFT FOOT COMPLETE, MINIMUM THREE VIEWS ([id number]) INDICATIONS: 51 year-old female with left foot pain. IMPRESSION: No acute bony injuries of the left foot. Interpretation / Wet Read by: Interpret - Radiologist Re-Eval/Medical Decision Med Decision/Clinical Course Morbidly obese 51-year-old female presents with a chief complaint of left knee pain after a stumble and fall incident on stairs. Physical examination is extremely limited due to body habitus but nonetheless reveals tenderness in the hip and ankle as well. Small bruise on the anterior knee with diffuse tenderness. X-rays of the hip and knee and foot reveal no fractures. DP and PT pulses 2+. Sensation intact. At this point I reassured that there is no fracture or vascular injury and believe this is a knee contusion. Patient is trained on the use of a walker for stability with successful road test, advised regarding [id number] analgesia, primary care follow-up and emergency return precautions. Patient verbalizes understanding of and consent to the plan Discharge & Departure Impression: Primary Impression: Contusion of left knee Encounter type: initial encounter Qualified Code: S80.02XA - Contusion of left knee, initial encounter Disposition: Home Discharge Condition All VS Reviewed: Yes Condition: Stable Patient Instructions: Contusions in Adults (ED) Additional Instructions: Evaluation in the emergency department for left knee pain includes history, physical examination and x-rays, all of which are reassuring that you do not have a fracture. I believe this is a contusion to your knee, which should resolve on its own over the next week or so. We have set you up with a walker for stability. Please use this as long as he feels is necessary. He can return to your cane when you feel stable enough to. Ice and elevate the affected limb as much as possible over the next few days to reduce swelling. The pain is best treated with 800 mg of ibuprofen (Advil, Motrin) every 6 hours , or 1000 mg of acetaminophen (Tylenol) every 6 hours. These drugs can be taken at the same time for more severe pain. Follow-up with your primary care provider in 5 days to a week to be sure this is progressing as expected. Return to the emergency department for any new or worsening symptoms including increasing pain or the development of a cold or numb foot. I also note that your blood pressure was elevated during your visit to the emergency department. Please discuss this with your primary care provider. Referrals: Luz Hayes MD (PCP) EDSupervising Provider for APC: Wesley Vega MD copies to: Luz Hayes MD, Seth PA-C March 22, 2017 18:43
--- NOTE | 2017-03-22 19:56 | DRSVH ---
PROCEDURE: X-RAY LEFT HIP COMPLETE, MINIMUM TWO VIEWS ([id number]) INDICATIONS: 51 year-old female with left hip pain after fall. TECHNIQUE: 2 views of the hip were acquired. COMPARISON: None. FINDINGS: Bones: No fractures or dislocations. No suspicious bony lesions. The visualized pelvic ring appear s intact. Soft tissues: No suspicious soft tissue calcifications or masses. IMPRESSION: No acute bony injuries of the left hip. Dictated by: Danny Rubio M.D. on 03/22/2017 at 19:49 Approved by: Danny Rubio M.D. on 03/22/2017 at 19:50
--- NOTE | 2017-03-22 20:01 | DRSVH ---
PROCEDURE: X-RAY LEFT FOOT COMPLETE, MINIMUM THREE VIEWS ([id number]) INDICATIONS: 51 year-old female with left foot pain. TECHNIQUE: 3 views of the foot were acquired. COMPARISON: None. FINDINGS: Bones: No fractures or dislocations. Posterior calcaneal degenerative enthesophyte is present. No s uspicious bony lesions. Soft tissues: No tibiotalar joint effusion. Achilles tendon appears normal. IMPRESSION: No acute bony injuries of the left foot. Dictated by: Danny Rubio M.D. on 03/22/2017 at 19:53 Approved by: Danny Rubio M.D. on 03/22/2017 at 19:54
== END 2017-03-22 20:33 | disposition home or self-care (01) ==
LOC: SED 16:25
DX: S80.02XA Contusion of left knee, initial encounter (principal); W10.8XXA Fall (on) (from) other stairs and steps, initial encounter; Y93.01 Activity, walking, marching and hiking; Y92.89 Other specified places as the place of occurrence of the external cause; Y99.8 Other external cause status; M25.552 Pain in left hip; J45.909 Unspecified asthma, uncomplicated; Z79.82 Long term (current) use of aspirin; Z79.84 Long term (current) use of oral hypoglycemic drugs; Z88.0 Allergy status to penicillin; Z88.1 Allergy status to other antibiotic agents; Z91.041 Radiographic dye allergy status
CPT/HCPCS: 73502; 73562; 73630; 96372; 99284; J1885

== ENCOUNTER 2017-06-23 15:54 | Emergency (ER) | payer OTHER ==
[~2017-06-23] VITALS: Ht 167.6 cm; Wt 177.3 kg
[2017-06-23 16:29] VITALS: BP 138/90; PULSE 95; RESP 18; O2SAT 97
--- NOTE | 2017-06-23 16:36 | ED.REPORT ---
HPI-Abd Pain F 40 and Over Date of Service Jun 23, 2017 ED Provider: Emigdio Mason MD Pt is a 52 year old female with a history of HTN and DM who presents to the ED complaining of abdominal pain onset 3 days ago. She c/o associated pelvic pain, dysuria without burning, nausea, urinary urgency, decreased urination, chills, diaphoresis, subjective fever, and hematuria. Her pain radiates into her back. Pt describes her hematuria as "blood clots" that she initially presumed was her menstruation. Her pain is exacerbated with eating. She denies a history of kidney infection, kidney stones, and recent UTI. The pt currently takes hydrocodone and ibuprofen. Pt presented to Urgent Care today and she was referred to the ED for "severe UTI , fluids, and IV antibiotics." Nursing Notes Stated Complaint: ABDOMINAL PAIN Chief Complaint: Female Abdominal Pain Nursing Notes Reviewed: Yes (Golgi not reconciled) Allergies: Coded Allergies: Penicillins (Verified Allergy, Severe, HOT, SEVERE RASH,ANXIETY, 06/23/17) cephalexin (Verified Allergy, Intermediate, rash, 06/23/17) Iodinated Contrast- Oral and IV Dye (Verified Allergy, Mild, Rash,Itching, , 06/23/17) Pt said she got blotchy and itchy after having IV dye injected. kld 01/12/17 Scheduled Aspirin (Aspirin) 325 Mg Tablet 325 MG PO DAILY Buspirone (Buspirone) 15 Mg Tablet 15 MG PO BID Ciprofloxacin (Cipro) 500 Mg Tablet 500 MG PO BID Fluoxetine (Fluoxetine) 60 Mg Tablet 60 MG PO DAILY Losartan Potassium (Losartan Potassium) 100 Mg Tablet 100 MG PO DAILY Metformin (Metformin) 850 Mg Tablet 850 MG PO BID Nystatin (Nystatin) 1 Each Powder.ea. 1 APPLIC TOPICAL BID Omeprazole (Omeprazole) 20 Mg Tablet.dr 20 MG PO DAILY Scheduled PRN Albuterol HFA (Proair HFA) 8.5 Gm Hfa.aer.ad 2 PUFFS INHALATION Q4H PRN PRN For Shortness of Breath Betamethasone/Propylene Glyc (Betamethasone Dp Aug 0.05% Crm) 15 Gm Cream..g. 1 APPFUL TOP BID PRN PRN RASH Cyclobenzaprine (Cyclobenzaprine) 10 Mg Tablet 10 MG PO TID PRN PRN For Pain Hydrocodone-Acetaminophen 5-325 mg (Hydrocodone-Acetaminophen 5-325 mg) 1 Each Tablet 1-2 TABLET PO QID PRN PRN For Pain Hydrocodone-Acetaminophen 7.5-325 mg (Hydrocodone-Acetaminophen 7.5-325 mg) 1 Each Tablet 1-2 TABLET PO Q4H PRN PRN For Pain Ibuprofen (Ibuprofen) 800 Mg Tablet 800 MG PO TID PRN PRN For Pain Loperamide (Loperamide) 2 Mg Capsule 2 MG PO Q6H PRN PRN For Diarrhea or Loose Stool Do not exceed 8 tablets or capsules in 24 hours. Lorazepam (Ativan) 2 Mg Tablet 2 MG PO DAILY PRN PRN For Insomnia Ondansetron ODT (Ondansetron ODT) 4 Mg Tab.rapdis 4 MG PO Q8H PRN PRN For Nausea /Vomiting Ondansetron ODT (Ondansetron ODT) 8 Mg Tab.rapdis 8 MG PO Q4H PRN PRN For Nausea General Time Seen by MD: 16:35 Chief Complaint Abdominal pain Hx Obtained From: Patient Arrived By: Walk-in Sudden in Onset?: No Onset Occurred: 3 days ago Symptom Duration: Since onset Location: : Diffuse Quality: Painful Radiation: : Pelvis Severity: Current: Moderate Severity: Maximum: Moderate Recent Healthcare: Recent doctor visit Similar Sx Previous: No Past Medical History Past Medical History Admit for acute rotavirus 01/2017 LLE cellulitis requiring admission Nov 13, 2015 bronchitis Depression Anxiety Diverticulitis Reports: Asthma, Diabetes mellitus, Hypertension Reports: Morbid Obesity Past Surgical History Right elbow ortho BCTR Reports: , Cholecystectomy Smoking History Former Smoker Social History Alcohol Use: Denies alcohol use Drug Use: Denies drug use Other Social History: Good social support, Local resident Ambulatory Status Independent Review of Systems Constitutional: Reports: Chills, Denies: Fever (subjective) GI: Reports: Abdominal pain, Nausea Female: Reports: Dysuria (without burning sensation), Hematuria (blood clots ), Pelvic pain, Urinary urgency, Urination decreased Musculoskeletal: Reports: Back pain Complete sys rev & neg: except as marked. Skin: Reports Diaphoresis Physical Exam Vital Signs Vital Signs (First) Date Time Temp Pulse Resp B/P Pulse Ox O2 Delivery O2 Flow Rate FiO2 06/23/17 16:29 36.6 95 18 138/90 97 Room Air Initial VS: Reviewed, Vital signs normal Head / Eyes: Atraumatic, Normocephalic Neck: Supple, Full range of motion Extremities: Vascular intact, Neuro intact Skin: Warm, Dry, No cyanosis Neurologic: Alert, Oriented, Nonfocal Psychiatric: Mood/affect normal, Behavior normal General/Constitutional: Awake, Alert Appearance / Presentation: Positive: Obese Moderate pain Respiratory / Chest: Atraumatic, Breath sounds NL, Breath sounds = bilat Cardiovascular: Heart rate NL, Regular rhythm, Heart sounds NL Abdomen: Atraumatic, Soft Mid abdominal tenderness without guarding or rebound Back: Atraumatic, Full range of motion Interpretation & Diagnostics CT KUB: IMPRESSION: Prior cholecystectomy, no urinary tract stones. No renal mass identified. It may be warranted to obtain contrast-enhanced imaging for more accurate assessment for urothelial or renal cortical masses. Dictated by: Sunny Corcoran M.D. on 06/23/2017 at 18:58 Lab Results Interpretation Result Diagram: 06/23/17191406/23/17 191 Test 06/23/17 18:43 06/23/17 19:15 Urine Color Yellow (YELLOW) Urine Appearance Hazy (CLEAR,HAZY) Urine pH 5.5 (5.0-8.0) Urine Specific [place] 1.020 (1.003-1.035) Urine Protein 30mg/dL (NEG,TRACE) Urine Glucose (UA) Negativemg/dL (NEGATIVE) Urine Ketones Negativemg/dL (NEGATIVE) Urine Occult Blood Large (NEGATIVE) Urine Nitrite Positive (NEGATIVE) Urine Bilirubin Negative (NEGATIVE) Urine Urobilinogen Normalmg/dL (NORMAL) Urine Leukocyte Esterase Small (NEGATIVE) Urine RBC 11-50/hpf (0-2) Urine WBC 11-50/hpf (0-5) Urine Epithelial Cells Few/hpf (NONE-MOD) Urine Crystals None seen (NONE SEEN) Urine Bacteria Many/hpf (NONE-FEW) Urine Hyaline Casts None/lpf (NONE) Urine Granular Casts None seen (NONE SEEN) Urine Waxy Casts None seen (NONE SEEN) Urine Red Blood Cell Casts None seen (NONE SEEN) Urine White Blood Cell Casts None seen (NONE SEEN) Urine Mucus None seen (None Seen) Urine Trichomonas None seen (NONE SEEN) Urine Yeast None (NONE SEEN) Urinalysis Comment None Urine Culture Reflexed Indicated White Blood Count 11.7th/mm3 (3.8-10.1) Red Blood Count 4.20mil/mm3 (3.90-5.20) Hemoglobin 11.3g/dL (12.0-15.6) Hematocrit 35.1% (35.0-46.0) Mean Corpuscular Volume 83.6fL (81-100) Mean Corpuscular Hemoglobin 26.9pg (27.0-35.0) Mean Corpuscular Hemoglobin Concent 32.2% (32.0-37.0) Red Cell Distribution Width 14.8% (12.3-15.4) Platelet Count 293bil/L (150-400) Neutrophils (%) (Auto) 63.5% (40-74) Lymphocytes (%) (Auto) 24.0% (14-46) Monocytes (%) (Auto) 8.1% (4-12) Eosinophils (%) (Auto) 3.8% (0-5) Basophils (%) (Auto) 0.3% (0-3) Prothrombin Time 10.0sec (8.1-12.5) Prothromb Time International Ratio 0.94ratio Sodium Level 139mEq/L (134-144) Potassium Level 3.7mEq/L (3.5-5.2) Chloride Level 102mEq/L (97-108) Carbon Dioxide Level 22mmol/L (18-29) Blood Urea Nitrogen 17mg/dL (6-24) Creatinine 0.69mg/dL (0.57-1.00) Estimat Glomerular Filtration Rate 127mL/min (>59) Glucose Level 143mg/dL (60-99) Calcium Level 9.2mg/dL (8.5-10.1) Total Bilirubin 0.2mg/dL (0.0-1.2) Aspartate Amino Transf (AST/SGOT) 17U/L (0-50) Alanine Aminotransferase (ALT/SGPT) 26U/L (0-32) Alkaline Phosphatase 79U/L (25-150) Total Protein 7.3g/dL (6.4-8.4) Albumin 3.8g/dL (3.4-5.0) Lipase 17U/L (13-60) Hold Gonzalez Top Tube Received (Received) Lab Results Interpretation: CBC trace leukocytosis CMP normal next line UA with positive Re-Eval/Medical Decision Med Decision/Clinical Course This is a 52-year-old female presents with dysuria and abdominal discomfort and worsening over the past several days. She also thought she had trace hematuria on Tuesday. Denies fevers or chills but reports she is generally uncomfortable. She has no previous history of kidney stones or kidney infections. On exam she is afebrile and nontoxic, but obese and mildly uncomfortable. Lab work is notable for mild leukocytosis, CT obtained without contrast given her IV contrast allergies was negative, but a urinalysis is markedly positive for markers of infection. The patient received quinolones given her allergy to both penicillin and cephalosporins. Is being discharged from hydrocodone-extra strength as she does take hydrocodone a daily basis reports that works best for her pain. She did receive a dose of Toradol some improvement as well. It is receiving some advance the trunk. However she is afebrile and nontoxic, not having active nausea or vomiting they think is an appropriate candidate for outpatient treatment. Abi return precautions reviewed. Patient is discharged in improved condition. Source of Hx: Old records Re-Evaluation/Progress #1: Time of Eval: 16:55 Re-Evaluation/Progress Note: Pt rechecked. Continued examining pt. All questions addressed. Re-Evaluation/Progress #2: Time of Eval: 19:47 Re-Evaluation/Progress Note: Pt rechecked. Informed pt of plan for discharge. Pt understands and agrees with plan for discharge. F/U instructions and RTER warnings given. All questions addressed. Differential Diagnosis: Positive: Acute abdominal pain, Pyelonephritis, Negative: Abdominal aortic aneurysm, Cholangitis, Ectopic , Esophageal rupture, Gun shot wound abdomen, Intrauterine , Urolithiasis , Volvulus Counseled Regarding: Diagnosis, Lab results, Need for follow-up, When/why to return to ED Discharge & Departure Primary Impression: Pyelonephritis Disposition: Home Discharge Condition All VS Reviewed: Yes Condition: Stable Additional Instructions: 1. Your blood tests and CT scan were normal, but your urine tests and symptoms reveal a significant infection (a kidney infection called pyelonephritis) causing your symptoms. 2. You received an injection of the antibiotics ceftriaxone, and he will need to continue the antibiotic ciprofloxacin 500 mg twice a day for the next 14 days. 3. Take hydrocodone/APAP - you can use the extra strength 7.5/325 one to 2 tabs up to every 4-6 hours if needed. Note: This medication does continue narcotic and causes drowsiness, no driving for at least 4 hours after taking. Use only if needed for more severe pain. 4. The work on drinking plenty of fluids. Symptoms are expected to start to improve 24-36 hours after beginning antibiotics. 5. Return if new or worsening, or uncontrolled symptoms occur. Referrals: Luz Hayes MD (PCP) Scribe Attestation Portions of this note were transcribed by Jacqueline Laura. I, Dr. Mason personally performed the history, physical exam and medical decision-making; I reviewed and confirmed the accuracy of the information in the transcribed note. Signed by: Mari Wallace, 06/23/17. copies to: Luz Hayes MD, Matthew F MD Jun 23, 2017 16:36 Jacqueline Cazares Jun 23, 2017 16:44
[2017-06-23] MEDS ORDERED: HYDROmorphone 0.5 mg/0.5 mL iSecure Syringe IVPUSH PRN (16:50)
[2017-06-23] MEDS ORDERED: Ondansetron 2 mg/mL 2 mL Inj IVPUSH ONE (16:50)
[2017-06-23] MEDS ORDERED: Albuterol 2.5 mg/3 mL Inhalation Solution NEB ONE (18:35)
--- NOTE | 2017-06-23 19:03 | DRSVH ---
PROCEDURE: CT KUB ([id number]) INDICATIONS: Abd pain, intermittant hematuria TECHNIQUE: Noncontrast 5 mm thick sections acquired from the diaphragms to the symphysis. 5 mm thick coronal an d sagittal reformats were then performed. For radiation dose reduction, the following was used: aut omated exposure control, adjustment of mA and/or kV according to patient size. COMPARISON: None. FINDINGS: Image quality: Excellent. Lung bases: Lung bases are clear. Heart size is normal. Urinary system: Both kidneys are normal in size. No kidney stones. No hydronephrosis or perinephri c fat stranding. Both ureters appear non-dilated throughout their expected courses. Bladder wall th ickness is normal; no calcified bladder stones. Other solid organs: Liver and spleen are normal in size. Gallbladder has been previously resected. Pancreas is normal in contours. No adrenal nodules. Peritoneum and bowel: Unenhanced bowel loops demonstrate normal wall thickness and caliber. No free fluid or air. Nodes and vessels: No retroperitoneal or mesenteric adenopathy by size criteria. Aorta and inferior vena cava are normal in caliber. Abdominal wall: No ventral hernias. Pelvis: No free pelvic fluid. No inguinal hernias or adenopathy. Bones: No suspicious bony lesions. No vertebral body compression fractures. IMPRESSION: Prior cholecystectomy, no urinary tract stones. No renal mass identified. It may be war ranted to obtain contrast-enhanced imaging for more accurate assessment for urothelial or renal corti gilmer masses. Dictated by: Sunny Corcoran M.D. on 06/23/2017 at 18:58 Approved by: Sunny Corcoran M.D. on 06/23/2017 at 19:02
[2017-06-23] MEDS ORDERED: BETA15CR38 TOP (19:06)
[2017-06-23 19:21] LABS: APPEARANCE,URINE HAZY (CLEAR,HAZY); COLOR,URINE YELLOW (YELLOW); OCCULT BLOOD,URINE LARGE (NEGATIVE); PH,URINE 5.5 (5.0-8.0); UROBILINOGEN,URINE NORMAL (NORMAL)
[2017-06-23 19:28] LABS: BASOPHILS % (AUTO) 0.3 % (0-3); EOSINOPHILS % (AUTO) 3.8 % (0-5); MONOCYTES % (AUTO) 8.1 % (4-12); Mean Corpuscular Hemoglobin 26.9 pg (27.0-35.0); Mean Corpuscular Volume 83.6 fL (81-100); NEUTROPHILS % (AUTO) 63.5 % (40-74); Platelet Count 293 bil/L (150-400)
[2017-06-23 19:38] LABS: INR 0.94 ratio
[2017-06-23] MEDS ORDERED: CIPR-231 PO (20:01)
[2017-06-23] MEDS ORDERED: HYDR-3825 PO (20:01)
[2017-06-23] MEDS ORDERED: cefTRIAXone Inj 1,000 MG, Lidocaine PF 1% Inj 2.1 ML in Syringe 0 EACH IM ONE (20:15)
[2017-06-23] MEDS ORDERED: _HYDROcodone/APAP 5-325 mg Tablet PO PRN (20:15)
[2017-06-23] MEDS ORDERED: ONDA8TAB10 PO (20:44)
[2017-06-23] MEDS ORDERED: _Ondansetron ODT 4 mg Tablet PO PRN (20:45)
[2017-06-23] MEDS ORDERED: HYDROcodone-APAP 7.5-325 mg Tablet PO ONE (20:45)
[2017-06-23 21:25] VITALS: BP 131/77; PULSE 75; RESP 20; O2SAT 100
== END 2017-06-23 21:26 | disposition home or self-care (01) ==
LOC: SED 15:54 → UNDOADMIN 19:15 → PCC 19:15 → SED 21:26
DX: N12 Tubulo-interstitial nephritis, not specified as acute or chronic (principal); I10 Essential (primary) hypertension; E11.9 Type 2 diabetes mellitus without complications; F41.9 Anxiety disorder, unspecified; F32.9 Major depressive disorder, single episode, unspecified; J45.909 Unspecified asthma, uncomplicated; B96.20 Unspecified Escherichia coli [E. coli] as the cause of diseases classified elsewhere; Z88.0 Allergy status to penicillin; Z88.1 Allergy status to other antibiotic agents; Z91.041 Radiographic dye allergy status; Z79.82 Long term (current) use of aspirin; Z79.84 Long term (current) use of oral hypoglycemic drugs; Z87.891 Personal history of nicotine dependence
CPT/HCPCS: 36415; 74176; 80053; 81000; 83690; 85025; 85610; 87086; 87088; 87186; 96372; 99285; J0696; J1885